=== PATIENT | female | born 1960 | race Caucasian/White ===

== ENCOUNTER → 2016-09-09 | Outpatient (CLI) | payer MEDICARE ==
--- NOTE | 2016-09-10 09:33 | MM ---
Reason for exam: screening (asymptomatic). Last mammogram was performed 5 years and 3 months ago. History: Patient is postmenopausal and is nulliparous. Taking estrogen for 8 years beginning at age 40. Physical Findings: A clinical breast exam by your physician is recommended on an annual basis and results should be correlated with mammographic findings. MG Screening Mammo w CAD Bilateral CC and MLO view(s) were taken. Prior study comparison: July 25, 2015, mammogram, performed at [facility]. July 24, 2014, mammogram, performed at [facility]. The breast tissue is heterogeneously dense. This may lower the sensitivity of mammography. Finding: There are typically benign round calcifications in the left breast. There is no discrete abnormality. ASSESSMENT: Benign, BI-RAD 2 RECOMMENDATION: Routine screening mammogram of both breasts in 1 year.
== END | disposition home or self-care (01) ==
LOC: RADMAMWWP 09:21
PROVIDERS: ATTEND Internal Medicine
DX: Z12.31 Encounter for screening mammogram for malignant neoplasm of breast (principal)

== ENCOUNTER → 2017-01-07 | Outpatient (CLI) | payer MEDICARE ==
--- NOTE | 2017-01-07 10:23 | US ---
EXAMINATION TYPE: US liver DATE OF EXAM: 01/07/2017 COMPARISONUS CLINICAL HISTORY: R94.5 ABN LIVER FUNCTION. EXAM MEASUREMENTS: Liver Length: 15.2 cm Gallbladder Wall: Surgically absent cm CBD: 0.32 cm Right Kidney: 10.2 X 5.4 X 2.7 cm Pancreas: Obscured by bowel gas Liver: wnl Gallbladder: Surgically absent. CBD: wnl Right Kidney: No hydronephrosis or masses seen IMPRESSION: No significant abnormality.
== END | disposition home or self-care (01) ==
LOC: RADUSWWP 08:19
PROVIDERS: ATTEND Internal Medicine
DX: R94.5 Abnormal results of liver function studies (principal)
CPT/HCPCS: 76705

== ENCOUNTER 2018-01-01 15:44 | Emergency (ER) | payer MEDICARE ==
[2018-01-01 15:55] VITALS: RESP 18
--- NOTE | 2018-01-01 16:14 | ED ---
General Adult HPI - General Chief complaint: Dizziness Stated complaint: Dizzy Time Seen by Provider: 01/01/18 16:12 Source: patient, RN notes reviewed, old records reviewed Mode of arrival: wheelchair Limitations: no limitations - History of Present Illness Initial comments: This is a 57-year-old female the ER with calm. Medical history. Muscular dystrophy. Patient states she's had severe dizziness throughout the day, worse with position changes she states she can't move her head so the symptoms of being severe. She has no history of heart disease no prior history of stroke or heart attack. Patient denies any trauma no headache. No blurry vision. No difficulty with hearing. No recent fevers. - Related Data Home Medications Medication Instructions Recorded Confirmed Acetaminophen Tab [Tylenol Tab] 1,000 mg PO Q6HR PRN 01/01/18 01/01/18 Acyclovir [Zovirax] 200 mg PO BID 01/01/18 01/01/18 Ergocalciferol (Vitamin D2) 50,000 unit PO TH 01/01/18 01/01/18 [Vitamin D2] Levothyroxine Sodium [Synthroid] 50 mcg PO DAILY 01/01/18 01/01/18 Meclizine [Antivert] 25 mg PO Q8H PRN 01/01/18 01/01/18 Pantoprazole Sodium [Protonix] 40 mg PO DAILY 01/01/18 01/01/18 Vision Formula 1 tab PO DAILY 01/01/18 01/01/18 Vitamin B Complex 1 cap PO DAILY 01/01/18 01/01/18 Allergies Allergy/AdvReac Type Severity Reaction Status Date / Time Sulfa (Sulfonamide Allergy Rash/Hives Verified 01/01/18 16:07 Antibiotics) Review of Systems ROS Statement: Those systems with pertinent positive or pertinent negative responses have been documented in the HPI. ROS Other: All systems not noted in ROS Statement are negative. Past Medical History Past Medical History: Hyperlipidemia, Thyroid Disorder Additional Past Medical History / Comment(s): muscular dystophy History of Any Multi-Drug Resistant Organisms: None Reported Past Surgical History: Hysterectomy, Orthopedic Surgery, Tonsillectomy Additional Past Surgical History / Comment(s): throidectomy Past Psychological History: No Psychological Hx Reported Smoking Status: Never smoker Past Alcohol Use History: None Reported Past Drug Use History: None Reported General Exam - General Exam Comments Initial Comments: Right cerumen impaction Limitations: no limitations General appearance: alert, in no apparent distress Head exam: Present: atraumatic, normocephalic, normal inspection Eye exam: Present: normal appearance, PERRL, EOMI. Absent: scleral icterus, conjunctival injection, periorbital swelling ENT exam: Present: normal exam, mucous membranes moist Neck exam: Present: normal inspection. Absent: tenderness, meningismus, lymphadenopathy Respiratory exam: Present: normal lung sounds bilaterally. Absent: respiratory distress, wheezes, rales, rhonchi, stridor Cardiovascular Exam: Present: regular rate, normal rhythm, normal heart sounds. Absent: systolic murmur, diastolic murmur, rubs, gallop, clicks GI/Abdominal exam: Present: soft, normal bowel sounds. Absent: distended, tenderness, guarding, rebound, rigid Extremities exam: Present: normal inspection, full ROM, normal capillary refill. Absent: tenderness, pedal edema, joint swelling, calf tenderness Back exam: Present: normal inspection Neurological exam: Present: alert, oriented X3, CN II-XII intact Psychiatric exam: Present: normal affect, normal mood Skin exam: Present: warm, dry, intact, normal color. Absent: rash Course Vital Signs 01/01/18 01/01/18 15:52 17:54 Temperature 98.2 F Pulse Rate 91 66 Respiratory 18 18 Rate Blood Pressure 141/93 127/61 O2 Sat by Pulse 94 L 95 Oximetry - Reevaluation(s) Reevaluation #1: 01/01/18 19:13 Patient did have left cerumen impaction evacuated Reevaluation #2: 01/01/18 19:13 Patient feels better and is able to ambulate, with no neurological deficit EKG Findings - EKG Comments: EKG Findings:: EKG shows sinus rhythm rate of 79, SC 232, QRS 160, QTc 511 Medical Decision Making - Medical Decision Making 87 female the ER for evaluation she has presents today for evaluation regards to dizziness. Patient did have positive right cerumen impaction, symptoms improved after cerumen is removed, patient currently able to ambulate CT is negative and patient can be discharged home - Lab Data Result diagrams: 01/01/18 16:25 01/01/18 16:25 Lab Results 06/30/18 06/30/18 06/30/18 Range/Units 16:25 16:25 16:25 WBC 6.7 (3.8-10.6) k/uL RBC 5.09 (3.80-5.40) m/uL Hgb 16.0 (11.4-16.0) gm/dL Hct 46.7 H (34.0-46.0) % MCV 91.8 (80.0-100.0) fL MCH 31.4 (25.0-35.0) pg MCHC 34.2 (31.0-37.0) g/dL RDW 14.2 (11.5-15.5) % Plt Count 223 (150-450) k/uL Neutrophils % 60 % Lymphocytes % 32 % Monocytes % 3 % Eosinophils % 3 % Basophils % 1 % Neutrophils # 4.0 (1.3-7.7) k/uL Lymphocytes # 2.2 (1.0-4.8) k/uL Monocytes # 0.2 (0-1.0) k/uL Eosinophils # 0.2 (0-0.7) k/uL Basophils # 0.0 (0-0.2) k/uL PT (9.0-12.0) sec INR (<1.2) APTT (22.0-30.0) sec Sodium 146 H (137-145) mmol/L Potassium 4.6 (3.5-5.1) mmol/L Chloride 109 H (98-107) mmol/L Carbon Dioxide 26 (22-30) mmol/L Anion Gap 11 mmol/L BUN 15 (7-17) mg/dL Creatinine 0.40 L (0.52-1.04) mg/dL Est GFR (CKD-EPI)AfAm >90 (>60 ml/min/1.73 sqM) Est GFR (CKD-EPI)NonAf >90 (>60 ml/min/1.73 sqM) Glucose 89 (74-99) mg/dL Calcium 10.6 H (8.4-10.2) mg/dL Phosphorus 3.1 (2.5-4.5) mg/dL Magnesium 2.4 H (1.6-2.3) mg/dL Total Bilirubin 0.6 (0.2-1.3) mg/dL AST 91 H (14-36) U/L ALT 104 H (9-52) U/L Alkaline Phosphatase 246 H (38-126) U/L Total Creatine Kinase 108 (30-135) U/L CK-MB (CK-2) 2.3 (0.0-2.4) ng/mL CK-MB (CK-2) Rel Index 2.1 Troponin I <0.012 (0.000-0.034) ng/mL Total Protein 7.4 (6.3-8.2) g/dL Albumin 4.5 (3.5-5.0) g/dL 01/01/18 Range/Units 16:25 WBC (3.8-10.6) k/uL RBC (3.80-5.40) m/uL Hgb (11.4-16.0) gm/dL Hct (34.0-46.0) % MCV (80.0-100.0) fL MCH (25.0-35.0) pg MCHC (31.0-37.0) g/dL RDW (11.5-15.5) % Plt Count (150-450) k/uL Neutrophils % % Lymphocytes % % Monocytes % % Eosinophils % % Basophils % % Neutrophils # (1.3-7.7) k/uL Lymphocytes # (1.0-4.8) k/uL Monocytes # (0-1.0) k/uL Eosinophils # (0-0.7) k/uL Basophils # (0-0.2) k/uL PT 9.5 (9.0-12.0) sec INR 1.0 (<1.2) APTT 22.5 (22.0-30.0) sec Sodium (137-145) mmol/L Potassium (3.5-5.1) mmol/L Chloride (98-107) mmol/L Carbon Dioxide (22-30) mmol/L Anion Gap mmol/L BUN (7-17) mg/dL Creatinine (0.52-1.04) mg/dL Est GFR (CKD-EPI)AfAm (>60 ml/min/1.73 sqM) Est GFR (CKD-EPI)NonAf (>60 ml/min/1.73 sqM) Glucose (74-99) mg/dL Calcium (8.4-10.2) mg/dL Phosphorus (2.5-4.5) mg/dL Magnesium (1.6-2.3) mg/dL Total Bilirubin (0.2-1.3) mg/dL AST (14-36) U/L ALT (9-52) U/L Alkaline Phosphatase (38-126) U/L Total Creatine Kinase (30-135) U/L CK-MB (CK-2) (0.0-2.4) ng/mL CK-MB (CK-2) Rel Index Troponin I (0.000-0.034) ng/mL Total Protein (6.3-8.2) g/dL Albumin (3.5-5.0) g/dL - Radiology Data Radiology results: report reviewed (CT brain negative), image reviewed Disposition Clinical Impression: Benign paroxysmal positional vertigo Disposition: HOME SELF-CARE Condition: Good Instructions: Dizziness (ED), Vertigo (ED) Is patient prescribed a controlled substance at d/c from ED?: No Referrals: Jon De La Torre MD [Primary Care Provider] - 1-2 days
[2018-01-01] MEDS ORDERED: SODIUM CHLORIDE 0.9% 1,000 ML IV STA (16:22)
[2018-01-01 16:53] LABS: Basophils % (A) 1 %; Eosinophils # (A) 0.2 k/uL (0-0.7); Eosinophils % (A) 3 %; HCT 46.7 % (34.0-46.0); Lymphocytes # (A) 2.2 k/uL (1.0-4.8); Lymphocytes % (A) 32 %; MCH 31.4 pg (25.0-35.0); MCHC 34.2 g/dL (31.0-37.0); MCV 91.8 fL (80.0-100.0); Mean Platelet Volume 6.8; Monocytes # (A) 0.2 k/uL (0-1.0); Monocytes % (A) 3 %; Neutrophils % (A) 60 %; Platelet Count 223 k/uL (150-450); RBC 5.09 m/uL (3.80-5.40); RDW 14.2 % (11.5-15.5); WBC 6.7 k/uL (3.8-10.6)
[2018-01-01 17:01] LABS: Partial Thromboplastin Time 22.5 sec (22.0-30.0); Prothrombin Time 9.5 sec (9.0-12.0)
[2018-01-01 17:03] LABS: ALT 104 U/L (9-52); AST 91 U/L (14-36); Albumin 4.5 g/dL (3.5-5.0); Alkaline Phosphatase 246 U/L (38-126); Anion Gap 11 mmol/L; Blood Urea Nitrogen 15 mg/dL (7-17); Calcium 10.6 mg/dL (8.4-10.2); Carbon Dioxide 26 mmol/L (22-30); Chloride 109 mmol/L (98-107); Glucose 89 mg/dL (74-99); Magnesium 2.4 mg/dL (1.6-2.3); Phosphorus 3.1 mg/dL (2.5-4.5); Sodium 146 mmol/L (137-145); Total Bilirubin 0.6 mg/dL (0.2-1.3); Total Protein 7.4 g/dL (6.3-8.2)
[2018-01-01 17:04] LABS: Potassium 4.6 mmol/L (3.5-5.1)
--- NOTE | 2018-01-01 17:08 | CT ---
EXAMINATION TYPE: CT brain wo con DATE OF EXAM: 01/01/2018 COMPARISON: None HISTORY: Dizziness and weakness x [address] DLP: 1105.7 mGycm Automated exposure control for dose reduction was used. Helical imaging through the brain FINDINGS: There is cortical atrophy. Periventricular white matter shows patchy low attenuation. There is no hem orrhage or hydrocephalus. Calvarium is intact. Paranasal sinuses and mastoid air cells as visualized are normal. IMPRESSION: NONSPECIFIC WHITE MATTER DEMYELINATION. ATROPHY MAY BE AGE-RELATED.
[2018-01-01 17:11] LABS: Creatine Kinase 108 U/L (30-135)
[2018-01-01 17:24] LABS: Creatine Kinase MB 2.3 ng/mL (0.0-2.4); Troponin I <0.012 ng/mL (0.000-0.034)
[2018-01-01] MEDS ORDERED: ONDANSETRON 4 MG/2 ML VIAL IVP STA (17:45)
[2018-01-01] MEDS ORDERED: DIAZEPAM 5 MG/ML 2 ML INJ IVP STA (17:45)
[2018-01-01 19:20] VITALS: TEMP 97.7
[2018-01-01 19:22] VITALS: BP 116/76; PULSE 61
--- NOTE | 2018-01-04 06:53 | CDI ---
Dear Trey Nichole DO: Please do addendum the method of right cerumen impaction removal. Thank you, Jagruti Mario, [employer]. If you have any questions, please contact [employer] Operator at [phone]. [facility]
== END 2018-01-01 19:21 | disposition home or self-care (01) ==
LOC: EC 15:44
DX: H81.10 Benign paroxysmal vertigo, unspecified ear (principal); H61.21 Impacted cerumen, right ear; E07.9 Disorder of thyroid, unspecified; Z79.899 Other long term (current) drug therapy; Z88.2 Allergy status to sulfonamides
CPT/HCPCS: 99284 ×2; 69209 ×2; 96374 ×2; 96375 ×2; 96361 ×2; 36415; 93005; 80053; 82550; 82553; 83735; 84100; 84484; 85025; 85610; 85730; 70450; J3360; J2405

== ENCOUNTER → 2018-01-26 | Outpatient (CLI) | payer MEDICARE ==
--- NOTE | 2018-01-27 11:32 | MM ---
Reason for exam: screening (asymptomatic). Last mammogram was performed 1 year and 5 months ago. History: Patient is postmenopausal, history of other cancer, and is nulliparous. Family history of breast cancer in 4 maternal aunts and breast cancer in maternal grandmother. Took estrogen for 8 years beginning at age 40. Physical Findings: A clinical breast exam by your physician is recommended on an annual basis and results should be correlated with mammographic findings. MG Screening Mammo w CAD Bilateral CC and MLO view(s) were taken. Prior study comparison: September 09, 2016, bilateral MG screening mammo w CAD. July 25, 2015, mammogram, performed at [facility]. The breast tissue is heterogeneously dense. This may lower the sensitivity of mammography. There is a right upper outer quadrant mass at posterior depth increased in size for which ultrasound will be performed. ASSESSMENT: Incomplete: need additional imaging evaluation, BI-RAD 0 RECOMMENDATION: Ultrasound of the right breast. [facility] will attempt to contact patient to return for ultrasound.
== END | disposition home or self-care (01) ==
LOC: RADMAMWWP 11:21
PROVIDERS: ATTEND Internal Medicine
DX: Z12.31 Encounter for screening mammogram for malignant neoplasm of breast (principal)
CPT/HCPCS: 77067

== ENCOUNTER → 2018-02-22 | Outpatient (CLI) | payer MEDICARE ==
--- NOTE | 2018-02-22 15:28 | MM ---
Reason for exam: additional evaluation requested from abnormal screening. Last mammogram was performed 1 month ago. History: Patient is postmenopausal, history of other cancer, and is nulliparous. Family history of breast cancer in 4 maternal aunts and breast cancer in maternal grandmother. Took estrogen for 8 years beginning at age 40. Physical Findings: Nurse did not find any significant physical abnormalities on exam. MG Work Up Mamm w CAD RT CC and ML view(s) were taken of the right breast. Prior study comparison: January 26, 2018, bilateral MG screening mammo w CAD. September 09, 2016, bilateral MG screening mammo w CAD. No significant new findings when compared with previous films. These results were verbally communicated with the patient and result sheet given to the patient on 02/22/18. ASSESSMENT: Probably benign, BI-RAD 3 RECOMMENDATION: Follow-up diagnostic mammogram of the right breast in 6 months.
--- NOTE | 2018-02-22 15:30 | USB ---
Reason for exam: additional evaluation requested from abnormal screening. History: Patient is postmenopausal, history of other cancer, and is nulliparous. Family history of breast cancer in 4 maternal aunts and breast cancer in maternal grandmother. Took estrogen for 8 years beginning at age 40. Physical Findings: Nurse did not find any significant physical abnormalities on exam. US Breast Workup Limited RT Right limited breast ultrasound including focal area of concern, retroareolar and axilla demonstrates a 0.3 x 0.3 x 0.3cm oval, cystic lesion at 10 o'clock. These results were verbally communicated with the patient and result sheet given to the patient on 02/22/18. ASSESSMENT: Benign, BI-RAD 2 RECOMMENDATION: Ultrasound of the right breast in 6 months.
== END ==
LOC: RADUSWWP 09:34
PROVIDERS: ATTEND Internal Medicine
DX: R92.8 Other abnormal and inconclusive findings on diagnostic imaging of breast (principal)
CPT/HCPCS: 77065

== ENCOUNTER → 2018-08-25 | Outpatient (CLI) | payer MEDICARE ==
--- NOTE | 2018-08-25 13:56 | MM ---
Reason for exam: follow-up at short interval from prior study. Last mammogram was performed 6 months ago. History: Patient is postmenopausal, history of other cancer, and is nulliparous. Family history of breast cancer in 4 maternal aunts and breast cancer in maternal grandmother. Took estrogen for 8 years beginning at age 40. Physical Findings: Nurse did not find any significant physical abnormalities on exam. MG 3D Diag Mammo W/Cad RT CC and MLO view(s) were taken of the right breast. Prior study comparison: February 22, 2018, right breast MG work up mamm w CAD RT. January 26, 2018, bilateral MG screening mammo w CAD. There are scattered fibroglandular densities. Posterior upper outer quadrant nodule is unchanged for 6 months. These results were verbally communicated with the patient and result sheet given to the patient on 08/25/18. ASSESSMENT: Incomplete: need additional imaging evaluation, BI-RAD 0 RECOMMENDATION: Ultrasound of the right breast.
--- NOTE | 2018-08-25 14:07 | USB ---
Reason for exam: additional evaluation requested from abnormal screening. History: Patient is postmenopausal, history of other cancer, and is nulliparous. Family history of breast cancer in 4 maternal aunts and breast cancer in maternal grandmother. Took estrogen for 8 years beginning at age 40. US Breast RT Right complete breast ultrasound includes all four quadrants, the retroareolar region and axilla. Finding demonstrates a 0.3 x 0.2 x 0.1cm lesion too small to characterize at 10 o'clock and a 0.7 x 0.7 x 0.5cm mixed lesion at the axilla tail, likely corresponds to the mammographic finding. Biopsy recommended with mammographic correlation post clip placement. These results were verbally communicated with the patient and result sheet given to the patient on 08/25/18. ASSESSMENT: Suspicious, BI-RAD 4 RECOMMENDATION: Surgical consultation and ultrasound core biopsy of the right breast. Called Dr. De La Torre with mammographic findings and has scheduled an appointment for the patient for 09/22/18 at 11:[address] Trujillo. Biopsy scheduled for 09/08/18 at 12:20. PRELIMINARY REPORT CALLED AND FAXED TO DR. TRUJILLO ON 08/25/18.
== END | disposition home or self-care (01) ==
LOC: RADMAMWWP 09:36
PROVIDERS: ATTEND Internal Medicine
DX: R92.8 Other abnormal and inconclusive findings on diagnostic imaging of breast (principal)
CPT/HCPCS: 77065; 76641; G0279; 77061

== ENCOUNTER → 2018-09-08 | Day surgery (SDC) | payer MEDICARE ==
[2018-09-08 11:43] VITALS: RESP 12
--- NOTE | 2018-09-08 13:09 | USB ---
EXAMINATION TYPE: US biopsy breast VAD RT, MG diagnostic mammo RT wo CAD DATE OF EXAM: 09/08/2018 CLINICAL HISTORY: R92.8 ABN MAMMO. TECHNIQUE: Ultrasound guided core biopsy of a right breast mass at the targeted clip position in the axillary tail. COMPARISON: 08/25/2018 FINDINGS: The procedure of ultrasound guided core biopsy was explained to the patient. Benefits, alt ernatives, and risks were discussed. An informed consent was then obtained. Preprocedural timeout w as performed. The patient was placed in supine positioning for imaging and for the procedure. The overlying skin w as prepped and draped in usual sterile fashion. Lidocaine buffered with bicarbonate was used as anes thetic into the skin and subcutaneous tissue up to area of concern in the right breast. Under ultrasound guidance, a 14-gauge nonvacuum assisted biopsy device was utilized to obtain 4 fragm ented nondiagnostic fatty appearing samples. Following this a 12-gauge vacuum assisted biopsy gun dev ice was used to obtain 2 adequate core samples as the first 4 samples were fragmented. Subsequently, a coil-shaped biopsy marker was left adjacent to the mass. This appears to correspond to the mass on mammogram as this directly correspond on cc and accounting for differences in technique on the LM ve rsus MLO this appears to correspond. The patient tolerated the procedure well without any immediate complication. The patient was kept in the radiology department for short stay after the procedure and then discharged home in stable condi tion. IMPRESSION: Successful, uncomplicated ultrasound guided core biopsy of a right axillary tail mass at the 10:00 position favored to represent a lymph node, full pathology results to follow.
[2018-09-08 13:19] VITALS: BP 124/80; PULSE 75; TEMP 98.6
== END | disposition home or self-care (01) ==
LOC: RADUSWWP 11:14
PROVIDERS: ATTEND Surgery
DX: N60.91 Unspecified benign mammary dysplasia of right breast (principal); R92.8 Other abnormal and inconclusive findings on diagnostic imaging of breast
CPT/HCPCS: 19083; 88305; 88342; 88341; 77065; A4648; J2001

== ENCOUNTER 2018-10-21 08:16 | Day surgery (SDC) | payer MEDICARE ==
[2018-10-18 16:01] VITALS: BMI 27.4
[~2018-10-21 08:16] MED LIST: ALPRAZolam 0.5 MG TAB PO PRN; DEXAMETHASONE SOD PHOSPHATE 10 MG/ML 1 ML VIAL IV ONE; HEPARIN SODIUM,PORCINE 5,000 UNIT/ML 1 ML VIAL SQ ONE; HYDROmorphone 0.5 MG/0.5 ML SYRINGE IVP PRN; LACTATED RINGERS 1,000 ML IV SCH; MORPHINE SULFATE 2 MG/ML SYRINGE IV PRN; ONDANSETRON 4 MG/2 ML VIAL IVP ONE; ONDANSETRON 4 MG/2 ML VIAL IVP PRN; Pre Op ABX Message 1 EACH MISC MISCELLANE ONE; ceFAZolin IN SWFI 2 GM/20 ML SYRINGE IVP ONE
--- NOTE | 2018-10-21 09:05 | P.HPADDEND ---
H&P Addendum H&P Addendum Date: 10/21/18 Patient's recent breast workup apparently revealed an additional small 1-2 mm lesion was advised to have a ultrasound core biopsy performed. That we will be obtained at the time of her needle localization today.
[2018-10-21 10:07] VITALS: RESP 16
[2018-10-21] MEDS ORDERED: LIDOCAINE 1% INJ 10MG/ML (20 ML MDV) SQ ONE (10:14)
[2018-10-21] MEDS ORDERED: SODIUM BICARB 4% 5 ML VIAL (0.48 MEQ/ML) MISCELLANE ONE (10:14)
[2018-10-21 10:32] VITALS: TEMP 97.6
[2018-10-21] MEDS ORDERED: MIDAZOLAM 2 MG/2 ML VIAL ONE (12:10)
[2018-10-21] MEDS ORDERED: KETAMINE 10 MG/ML 20 ML VIAL ONE (12:10)
[2018-10-21] MEDS ORDERED: fentaNYL (PF) 50 MCG/ML 2 ML AMP ONE (12:10)
[2018-10-21] MEDS ORDERED: BUPIVACAINE-EPI 0.5%-1:200,000 10 ML VIAL SQ ONE ×2 (12:39)
[2018-10-21] MEDS ORDERED: LACTATED RINGERS 1,000 ML IV ONE (12:40)
[2018-10-21] MEDS ORDERED: NALOXONE 0.4 MG/ML 1 ML VIAL IV PRN (13:21)
[2018-10-21] MEDS ORDERED: HYDROcodone/APAP 5-325MG 1 EACH TAB PO PRN (13:21)
--- NOTE | 2018-10-21 13:25 | P.OP ---
Date of Procedure: 10/21/18 Procedure(s) Performed: PREOPERATIVE DIAGNOSIS: Abnormal right mammogram POSTOPERATIVE DIAGNOSIS: Same PROCEDURE: 8 Breast wire localization biopsy SURGEON: Ronnie EBL: Minimal ANESTHESIA: Sedation plus local COMPLICATIONS: None OPERATIVE PROCEDURE: Patient was placed on the operating room table in the supin e position. The patient's breast was prepped and draped in usual sterile fashion. A curvilinear incision was made adjacent to the wire entrance site. I followed the wire down into the breast tissue. The breast tissue around the tip of the wire was fully excised using electrocautery. The specimen was sent for specimen radiogram. The clip was present within the specimen. The subcutaneous tissues were inspected. No bleeding was seen. The subcutaneous tissues were closed using 3-0 Vicryl sutures. The skin was closed using a running 4-0 Monocryl stitch. Skin glue was then applied. DISPOSITION: Stable to recovery room
[2018-10-21] MEDS ORDERED: HYDROcodone/APAP 5-325MG 1 EACH TAB PO ONE (14:10)
--- NOTE | 2018-10-21 14:32 | USB ---
EXAMINATION TYPE: US breast localization RT, MG surgical specimen RT DATE OF EXAM: 10/21/2018 COMPARISON: 09/08/2018 CLINICAL HISTORY: R92.8, ABN MAMM. PROCEDURE: Preprocedural demonstrating failed to demonstrate a solid mass at the 10:00 position as seen on the prior imaging. Breast lobes were seen at this location and intervening areas of dense tissue. Finding was discussed with the patient and six-month follow-up exam will be performed. Informed consent was obtained prior to the procedure. Preprocedural timeout was performed. Ultrasound-guided needle localization was performed of the right breast for the axillary tail/10:00 lesion at posterior depth. 10 cc of lidocaine was utilized to anesthetize the subcutaneous tissue and skin surface. A 5 cm Kopans needle was advanced through the mass to the biopsy marker location. The wire was then placed through the coaxial needle and needle was removed. This was all performed under ultrasound guidance. Image 22 demonstrates the wire through the mass with the distal end of the wire abutting the clip. Image 23 demonstrates skin to needle tip distance of 1.6 cm. The patient remained in stable condition throughout the examination and was transferred to the OR for surgery. Surgical specimen demonstrates the biopsy marker, wire tip and wire. IMPRESSION: Successful ultrasound-guided needle localization of a right breast mass with the distal on the wire terminating at the clip. This was performed for surgical excision of the high risk lesion. Note the additional 3 x 2 x 1 mm mass was not reproducible on today's examination on real-time imaging and six-month follow-up ultrasound will be performed. 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 Stromal reparative changes are noted. Inked surgical margins of excision are negative for neoplasia. Recommendation Follow up ultrasound of the right breast in 6 months. CABRERAD
[2018-10-21 14:54] VITALS: BP 128/74; PULSE 82
== END 2018-10-21 15:15 | disposition home or self-care (01) ==
LOC: OR 08:16
PROVIDERS: ATTEND Surgery
DX: D24.1 Benign neoplasm of right breast (principal); E78.5 Hyperlipidemia, unspecified; E89.0 Postprocedural hypothyroidism; G71.11 Myotonic muscular dystrophy; Z79.890 Hormone replacement therapy; Z79.899 Other long term (current) drug therapy; Z88.2 Allergy status to sulfonamides
CPT/HCPCS: 88307; 76098; 19285; 19125; J2250; J1644; J1100; J2405; J2001; J3010

== ENCOUNTER → 2020-03-05 | Outpatient (CLI) | payer MEDICARE ==
--- NOTE | 2020-03-06 10:18 | MM ---
Reason for exam: screening (asymptomatic). Last mammogram was performed 1 year and 6 months ago. History: Patient is postmenopausal, has history of high-risk lesion on a previous biopsy at age 58, history of other cancer, and is nulliparous. Family history of breast cancer in 4 maternal aunts and breast cancer in maternal grandmother. Benign US breast localization RT of the right breast, October 21, 2018. High risk US biopsy breast VAD RT of the right breast, September 08, 2018. Took estrogen for 8 years beginning at age 40. Physical Findings: A clinical breast exam by your physician is recommended on an annual basis and results should be correlated with mammographic findings. MG 3D Screening Mammo W/Cad Bilateral CC and MLO view(s) were taken. Prior study comparison: September 08, 2018, right breast MG diagnostic mammo RT wo CAD. August 25, 2018, right breast MG 3d diag mammo w/cad RT. The breast tissue is heterogeneously dense. This may lower the sensitivity of mammography. There is no discrete abnormality. No significant changes when compared with prior studies. ASSESSMENT: Negative, BI-RAD 1 RECOMMENDATION: Routine screening mammogram of both breasts in 1 year.
== END | disposition home or self-care (01) ==
LOC: RADMAMWWP 10:54
PROVIDERS: ATTEND Internal Medicine
DX: Z12.31 Encounter for screening mammogram for malignant neoplasm of breast (principal)
CPT/HCPCS: 77063; 77067

== ENCOUNTER 2020-04-19 12:21 | Emergency (ER) | payer MEDICARE ==
[2020-04-19 13:29] LABS: Basophils # (A) 0.1 k/uL (0-0.2); Basophils % (A) 1 %; Eosinophils # (A) 0.2 k/uL (0-0.7); Eosinophils % (A) 3 %; HCT 50.8 % (34.0-46.0); HGB 16.5 gm/dL (11.4-16.0); Lymphocytes # (A) 2.7 k/uL (1.0-4.8); Lymphocytes % (A) 37 %; MCH 30.9 pg (25.0-35.0); MCHC 32.6 g/dL (31.0-37.0); Mean Platelet Volume 7.2; Monocytes # (A) 0.2 k/uL (0-1.0); Monocytes % (A) 3 %; Neutrophils # (A) 3.9 k/uL (1.3-7.7); Neutrophils % (A) 54 %; Platelet Count 239 k/uL (150-450); RBC 5.35 m/uL (3.80-5.40); RDW 13.4 % (11.5-15.5); WBC 7.2 k/uL (3.8-10.6)
--- NOTE | 2020-04-19 13:37 | ED ---
General Adult HPI - General Chief complaint: ENT Stated complaint: lump on neck Time Seen by Provider: 04/19/20 12:36 Source: patient, RN notes reviewed, old records reviewed Mode of arrival: wheelchair Limitations: no limitations - History of Present Illness Initial comments: 60 yo female presenting for evaluation of right-sided neck pain, tenderness, and a lump in her throat. Patient has remote history of thyroidectomy. She states she noticed this over the past 24 hours. She states it feels pulsatile. She does report pain. She had a URI with minimal cough and congestion several days ago. She denies any acute illness at this time. No cough. No chest pain. No fevers. No sore throat. Difficulty breathing or swallowing. - Related Data Home Medications Medication Instructions Recorded Confirmed Acyclovir [Zovirax] 400 mg PO BID 01/01/18 10/18/18 Ergocalciferol (Vitamin D2) 50,000 unit PO TH 01/01/18 10/18/18 [Vitamin D2] Levothyroxine Sodium [Synthroid] 50 mcg PO DAILY 01/01/18 10/18/18 Pantoprazole Sodium [Protonix] 40 mg PO DAILY PRN 01/01/18 10/18/18 Vision Formula 1 tab PO DAILY 01/01/18 10/18/18 Vitamin B Complex 1 cap PO DAILY 01/01/18 10/18/18 Donepezil [Aricept] 5 mg PO DAILY 08/29/18 10/21/18 Previous Rx's Medication Instructions Recorded Hydrocodone/Acetaminophen [[place] 1 tab PO Q6HR PRN 3 Days #5 tab 10/21/18 5-325] Allergies Allergy/AdvReac Type Severity Reaction Status Date / Time Sulfa (Sulfonamide Allergy Swelling, Verified 04/19/20 12:35 Antibiotics) REDNESS OF FACE Review of Systems ROS Statement: Those systems with pertinent positive or pertinent negative responses have been documented in the HPI. ROS Other: All systems not noted in ROS Statement are negative. Past Medical History Past Medical History: Cancer, Eye Disorder, Hyperlipidemia, Memory Impairment, Musculoskeletal Disorder, Osteoarthritis (OA), Thyroid Disorder Additional Past Medical History / Comment(s): muscular dystophy, BACK PAIN , SKIN CANCER, MACULAR DEGENERATION History of Any Multi-Drug Resistant Organisms: None Reported Past Surgical History: Cholecystectomy, Hysterectomy, Orthopedic Surgery, Tonsillectomy Additional Past Surgical History / Comment(s): throidectomy, ARTHROSCOPIC RIGHT KNEE Past Anesthesia/Blood Transfusion Reactions: Previous Problems w/ Anesthesia Additional Past Anesthesia/Blood Transfusion Reaction / Comment(s): pt states hard to wake up related to MUSCULAR DYSTROPHY - LONGER TO WAKE UP Past Psychological History: No Psychological Hx Reported Smoking Status: Never smoker Past Alcohol Use History: None Reported Past Drug Use History: None Reported - Past Family History Father Additional Family Medical History / Comment(s): MUSCULAR DYSTROPHY Mother Family Medical History: No Reported History General Exam Limitations: no limitations General appearance: alert, in no apparent distress Head exam: Present: atraumatic, normocephalic Eye exam: Present: normal appearance, PERRL ENT exam: Present: normal exam, normal oropharynx, other (No tongue swelling or uvular swelling) Neck exam: Present: lymphadenopathy (Tender 2 cm x 2 cm mass in the right soft tissue neck anterior to the sternocleidomastoid), other Respiratory exam: Present: normal lung sounds bilaterally. Absent: respiratory distress, wheezes, rhonchi, stridor Cardiovascular Exam: Present: regular rate, normal rhythm GI/Abdominal exam: Present: soft. Absent: distended, tenderness, guarding Extremities exam: Present: normal inspection, normal capillary refill. Absent: pedal edema Back exam: Present: normal inspection, full ROM Neurological exam: Present: alert, oriented X3 Psychiatric exam: Present: normal affect, normal mood Skin exam: Present: warm, dry, intact. Absent: cyanosis, diaphoretic Course Vital Signs 04/19/20 12:33 Temperature 98.0 F Pulse Rate 82 Respiratory 20 Rate Blood Pressure 141/92 O2 Sat by Pulse 98 Oximetry Medical Decision Making - Medical Decision Making 60-year-old female with right-sided neck pain, she does have a palpable lump on the right. There is no drainable abscess, no external skin changes, no pulsatile mass. She has no stridor or dyspnea. CT soft tissue is performed which shows a left thyroidectomy with no other acute findings. There is some nodularity to the right thyroid which will require ultrasound on an outpatient basis. She is instructed on this and will follow with her primary care physician. - Lab Data Result diagrams: 04/19/20 13:04 04/19/20 12:55 Lab Results 10/16/20 10/16/20 Range/Units 12:55 13:04 WBC 7.2 (3.8-10.6) k/uL RBC 5.35 (3.80-5.40) m/uL Hgb 16.5 H (11.4-16.0) gm/dL Hct 50.8 H (34.0-46.0) % MCV 95.0 (80.0-100.0) fL MCH 30.9 (25.0-35.0) pg MCHC 32.6 (31.0-37.0) g/dL RDW 13.4 (11.5-15.5) % Plt Count 239 (150-450) k/uL Neutrophils % 54 % Lymphocytes % 37 % Monocytes % 3 % Eosinophils % 3 % Basophils % 1 % Neutrophils # 3.9 (1.3-7.7) k/uL Lymphocytes # 2.7 (1.0-4.8) k/uL Monocytes # 0.2 (0-1.0) k/uL Eosinophils # 0.2 (0-0.7) k/uL Basophils # 0.1 (0-0.2) k/uL Sodium 141 (137-145) mmol/L Potassium 4.3 (3.5-5.1) mmol/L Chloride 105 (98-107) mmol/L Carbon Dioxide 30 (22-30) mmol/L Anion Gap 6 mmol/L BUN 14 (7-17) mg/dL Creatinine 0.45 L (0.52-1.04) mg/dL Est GFR (CKD-EPI)AfAm >90 (>60 ml/min/1.73 sqM) Est GFR (CKD-EPI)NonAf >90 (>60 ml/min/1.73 sqM) Glucose 94 (74-99) mg/dL Calcium 10.4 H (8.4-10.2) mg/dL Disposition Clinical Impression: Thyroid nodule Disposition: HOME SELF-CARE Instructions (If sedation given, give patient instructions): Thyroid Nodules (ED) Is patient prescribed a controlled substance at d/c from ED?: No Referrals: Jon De La Torre MD [Primary Care Provider] - 1-2 days Time of Disposition: 14:09
[2020-04-19 13:39] LABS: African American GFR (CKD) >90 (>60 ml/min/1.73 sqM); Anion Gap 6 mmol/L; Blood Urea Nitrogen 14 mg/dL (7-17); Calcium 10.4 mg/dL (8.4-10.2); Carbon Dioxide 30 mmol/L (22-30); Chloride 105 mmol/L (98-107); Glucose 94 mg/dL (74-99); Non-African American GFR(CKD) >90 (>60 ml/min/1.73 sqM); Potassium 4.3 mmol/L (3.5-5.1); Sodium 141 mmol/L (137-145)
--- NOTE | 2020-04-19 14:05 | CT ---
EXAMINATION TYPE: CT soft tissue neck w con DATE OF EXAM: 04/19/2020 1:38 PM COMPARISON: None HISTORY: Pain and swelling on the right side CT DLP: 276.6 mGycm Automated exposure control for dose reduction was used. CONTRAST: CT scan of the neck is performed following with IV Contrast, patient injected with 100 ml mL of Isovu e 300. Axial images are obtained, coronal and sagittal reformatted images are reviewed. FINDINGS: Airway: No gross abnormality seen. Parotid/submandibular glands: No gross abnormality seen. Carotid/Vascular Structures: Patent. Osseous Structures: No acute osseous abnormality. Degenerative changes of the spine. Prevertebral sof t tissue is unremarkable. Other: No cervical lymphadenopathy. No evidence of mass effect. No focal fluid collections or abscess . There is apparent left thyroidectomy. There are nodules within the right thyroid lobe. Lung apices are clear. IMPRESSION: 1. No focal abnormality to explain patient's pain and swelling. 2. Left thyroidectomy. Nodular changes of the right thyroid lobe. Correlation with thyroid ultrasound may be of benefit if outside imaging not available.
[2020-04-19 14:33] VITALS: BP 133/80; PULSE 88; RESP 18; TEMP 97.8
== END 2020-04-19 14:33 | disposition home or self-care (01) ==
LOC: EC 12:21
DX: E04.1 Nontoxic single thyroid nodule (principal); E89.0 Postprocedural hypothyroidism; Z85.828 Personal history of other malignant neoplasm of skin; Z79.899 Other long term (current) drug therapy; Z79.890 Hormone replacement therapy; Z88.2 Allergy status to sulfonamides
CPT/HCPCS: 36415; 80048; 85025; 70491; 99284; Q9967

== ENCOUNTER → 2020-05-17 | Outpatient (CLI) | payer MEDICARE ==
--- NOTE | 2020-05-17 12:48 | US ---
EXAMINATION TYPE: US thyroid st tissue head/neck DATE OF EXAM: 05/17/2020 COMPARISON: NONE CLINICAL HISTORY: 60-year-old female N95.1 post menopausal states E04.1 Thyroid nodule. TECHNIQUE: Multiple sonographic images of the thyroid gland are obtained. FINDINGS: GLAND SIZE: Right Lobe: 5.1 x 1.6 x 2.1 cm Overall Parenchyma: grossly heterogenous Left Lobe: Surgically absent NODULES RIGHT: # of nodules measured on right: 1. 1.0 X 0.8 x 1.0 cm heterogeneous hypoechoic solid nodule at the lower pole with well-defined mar gins. This nodule is taller than wide and shows no intranodular vascularity. No prior at this facility. LEFT: # of nodules measured on left: 0 ISTHMUS: # of nodules measured in the isthmus: 0 Bilateral neck scanned, no evidence of lymphadenopathy. IMPRESSION: 1. Status post left thyroidectomy. 2. A solitary 1 cm solid nodule at the right lower pole. Follow-up is recommended.
--- NOTE | 2020-05-17 18:38 | BD ---
EXAMINATION TYPE: Axial Bone Density DATE OF EXAM: 05/17/2020 COMPARISON: 01.21.2015 CLINICAL HISTORY: 60 YR OLD FEMALE.....ICD-10 CODE: N95.1 POST MENPAUSE, E04.1 THYROID NODULE Height: 61.4 Weight: 155 FRAX RISK QUESTIONS: History of Fracture in Adulthood: YES Secondary Osteoporosis: YES 3. Menopause before 45: YES 5. Chronic liver disease: HIGH ENZYMES RISK FACTORS HISTORY OF: HX OF BILAT KNEE FRACTURES AND LT ANKLE AN ADULT Family History of Osteoporosis: YES MOTHER WITH BILAT HIP REPLACEMENTS Postmenopausal woman: YES AT AGE 37, TOTAL HYST Take estrogen and/or progesterone medications: YES, FOR ABOUT 10 YRS Lost more than 2 inches in height since high school: YES Frequent falls: UNSTEADY, USING CANE AND W/C....PT HAS MD Poor Health: PT HAS MD Hyperparathyroidism: NO Adrenal Insufficiency: NO MEDICATIONS: Thyroid Medications: YES SYNTHROID, FOR ABOUT 20 YRS Additional Medications: VIT D, Additional History: PT HAS MD EXAM MEASUREMENTS: Bone mineral densitometry was performed using the Twijector System. Bone mineral density as measured about the Lumbar spine is: ----- L1-L4(G/cm2): 1.387 T Score Values are as follows: ----- L1: 0.7 ----- L2: 1.6 ----- L3: 2.1 ----- L4: 2.2 ----- L1-L4: 1.7 Bone mineral density has: Increased 2.4% since study of: 01.21.2015 Bone mineral density about the R hip (g/cm2): 1.193 Bone mineral density about the L hip (g/cm2): 1.239 T Score values are as follows: -----R Neck: 0.3 -----L Neck: 0.9 -----R Total: 1.5 -----L Total: 1.8 Bone mineral density has: Increased 4.2% since study of: 01.21.2015 FRAX%s: THERE IS A 9.5% CHANCE FOR A MAJOR OSTEOPOROTIC FX AND A 0.1% FOR HIP .....PROBABILITY F OR FX IN 10 YRS TIME IMPRESSION: Normal (Values between +1 and -1 indicate normal bone mass). Consider repeating this study in 5 year s or sooner if there is some new clinical indication. NOTE: T-SCORE=SD OF THE YOUNG ADULT MEAN.
== END | disposition home or self-care (01) ==
LOC: RADBDWWP 09:56
PROVIDERS: ATTEND Internal Medicine
DX: N95.1 Menopausal and female climacteric states (principal); M85.88 Other specified disorders of bone density and structure, other site; E04.1 Nontoxic single thyroid nodule; Z88.2 Allergy status to sulfonamides; Z90.89 Acquired absence of other organs
CPT/HCPCS: 76536; 77080

== ENCOUNTER → 2020-08-26 | Outpatient (CLI) | payer MEDICARE ==
--- NOTE | 2020-08-26 12:29 | NM ---
EXAMINATION TYPE: NM thyroid image only DATE OF EXAM: 08/26/2020 COMPARISON: NONE HISTORY: Thyroid nodule TECHNIQUE: After the intravenous administration of 9.4 mCi Tc 99m Sodium Pertechnetate. FINDINGS: There is diminished radiotracer accumulation within the left thyroid bed compared to the right. Image s reported is status post left lobectomy, there is some faint diffuse uptake throughout the left thyr oid bed. Consider residual tissue no suspicious uptake or photopenic defect at the inferior pole righ t lobe thyroid is identified. Right thyroid uptake appears appropriate in relation to the salivary gl ands. IMPRESSION: 1. Faint diffuse uptake appears to be present on oblique images through the left thyroid bed. 2. No suspicious uptake photopenic defect right lobe thyroid
== END | disposition home or self-care (01) ==
LOC: RADNMMAIN 10:49
PROVIDERS: ATTEND Otolaryngology
DX: R93.89 Abnormal findings on diagnostic imaging of other specified body structures (principal)
CPT/HCPCS: 78013; A9512

== ENCOUNTER 2020-09-06 12:10 | Day surgery (SDC) | payer MEDICARE ==
[2020-09-06 12:47] VITALS: TEMP 98.1
[2020-09-06 14:16] VITALS: BP 126/71; PULSE 72; RESP 18
--- NOTE | 2020-09-06 16:06 | US ---
EXAMINATION TYPE: US FNA thyroid first lesion DATE OF EXAM: 09/06/2020 COMPARISON: NONE HISTORY: Thyroid nodule. Maximal barrier technique was utilized. After informed consent, skin overlying the lower pole right thyroid nodule was localized with ultrasound and the overlying skin prepped and draped. Ultrasound wa s utilized using sterile technique. Lidocaine was used for local anesthesia. Five passes with a 25-g auge needle were made into the nodule and aspirated specimen was submitted to cytology. Following th e procedure hemostasis achieved. No immediate complication. The patient discharged in stable condit ion. IMPRESSION: STATUS POST ULTRASOUND GUIDED FINE NEEDLE ASPIRATION OF THYROID NODULE, PATHOLOGY IS PEND ING. THIS PROCEDURE WAS PERFORMED BY THE UNDERSIGNED.
== END 2020-09-06 14:05 | disposition home or self-care (01) ==
LOC: RADPROMAIN 12:10
PROVIDERS: ATTEND Otolaryngology
DX: E04.1 Nontoxic single thyroid nodule (principal)
CPT/HCPCS: 10005; 88173; 88305

== ENCOUNTER 2020-09-20 09:08 | Day surgery (SDC) | payer MEDICARE ==
[2020-09-18 11:36] VITALS: BMI 26.5
[~2020-09-20 09:08] MED LIST changes: -ALPRAZolam 0.5 MG TAB PO PRN; -DEXAMETHASONE SOD PHOSPHATE 10 MG/ML 1 ML VIAL IV ONE; -HEPARIN SODIUM,PORCINE 5,000 UNIT/ML 1 ML VIAL SQ ONE; -HYDROmorphone 0.5 MG/0.5 ML SYRINGE IVP PRN; -MORPHINE SULFATE 2 MG/ML SYRINGE IV PRN; -ONDANSETRON 4 MG/2 ML VIAL IVP ONE; -ONDANSETRON 4 MG/2 ML VIAL IVP PRN; -Pre Op ABX Message 1 EACH MISC MISCELLANE ONE; -ceFAZolin IN SWFI 2 GM/20 ML SYRINGE IVP ONE
[2020-09-20 10:15] VITALS: TEMP 97.1
[2020-09-20] MEDS ORDERED: PROPOFOL 10 MG/ML 20 ML VIAL IV ONE (10:48)
[2020-09-20] MEDS ORDERED: LIDOCAINE 1% INJ 10MG/ML (20 ML MDV) ONE (10:48)
--- NOTE | 2020-09-20 11:05 | P.PCN ---
Date of Procedure: 09/20/20 Procedure(s) Performed: BRIEF HISTORY: Patient is a 60-year-old pleasant female scheduled for an elective colonoscopy as a part of evaluation of blood in the stool and prior history of colon polyps PROCEDURE PERFORMED: Colonoscopy with snare polypectomy. PREOPERATIVE DIAGNOSIS: Blood in the stool and history of colon polyps. IV sedation per Anesthesia. PROCEDURE: After informed consent was obtained, the patient, was brought into the endoscopy unit. IV sedation was administered by Anesthesia under continuous monitoring. Digital rectal examination was normal. Initially the Olympus CF-160 flexible video colonoscope was then inserted in the rectum, gradually advanced into the cecum without any difficulty. Careful examination was performed as the scope was gradually being withdrawn. Ileocecal valve and the appendiceal orifice were visualized and appeared normal. Prep was excellent. Mucosa of the cecum, ascending colon, transverse colon, appeared normal. The descending colon there was a 1 cm flat polyp removed by snare polypectomy. In the sigmoid: There was a 3 mm polyp removed by snare polypectomy The rest of the descending colon, sigmoid colon, and rectum appeared normal. Retroflexion was performed in the rectum and no lesions were seen. The patient tolerated the procedure well. IMPRESSION: 1 cm flat descending colon polyp status post polypectomy 3 mm sigmoid colon polyp status post polypectomy RECOMMENDATIONS: Findings of this examination were discussed with the patient as well as a family. She was advised to follow with the biopsy results. If the biopsy shows an adenoma she can have a repeat colonoscopy in 3-5 years.
[2020-09-20 11:14] VITALS: RESP 18
[2020-09-20 11:28] VITALS: BP 103/70; PULSE 73
== END 2020-09-20 11:53 | disposition home or self-care (01) ==
LOC: ORWHC2ENDO 09:08
PROVIDERS: ATTEND Internal Medicine Gastroenterology
DX: D12.5 Benign neoplasm of sigmoid colon (principal); Z86.010 Personal history of colon polyps; E78.5 Hyperlipidemia, unspecified; G71.00 Muscular dystrophy, unspecified; R41.3 Other amnesia; M19.90 Unspecified osteoarthritis, unspecified site; K21.9 Gastro-esophageal reflux disease without esophagitis; E07.9 Disorder of thyroid, unspecified; Z79.899 Other long term (current) drug therapy; Z79.890 Hormone replacement therapy; Z88.2 Allergy status to sulfonamides
CPT/HCPCS: 88305; 45385; J2001; J2704

== ENCOUNTER 2020-09-25 15:58 | Emergency (ER) | payer MEDICARE ==
[2020-09-25] MEDS ORDERED: MORPHINE SULFATE 4 MG/ML SYRINGE IVP STA (17:54)
[2020-09-25] MEDS ORDERED: ONDANSETRON 4 MG/2 ML VIAL IVP STA (17:54)
--- NOTE | 2020-09-25 18:17 | ED ---
GI Bleed HPI - General Chief complaint: GI Bleed Stated complaint: Blood in stool Time Seen by Provider: 09/25/20 17:41 Source: patient Mode of arrival: wheelchair Limitations: no limitations - History of Present Illness Initial comments: 60-year-old female patient presents to the emergency department today for evaluation of GI bleed. Patient states that since this morning she has had 5 episodes of bright red blood per rectum. States that she did have a colonoscopy with removal of polyps in one hemorrhoid about [address] Fletcher. Patient states that she has never had this much bleeding in the past. States she is having some mid back pain with radiation to the left upper quadrant that's been going on since before the procedure. She denies any hematuria, dysuria, urinary frequency, urinary urgency. Denies fever or chills. Denies any significant abdominal pain. States she does feel weak. Denies any dizziness or fainting. Patient denies any recent rash, cough, shortness of breath, chest pain, constipation, back pain, numbness, tingling, dizziness, weakness, headache, visual changes, or any other complaints. - Related Data Home Medications Medication Instructions Recorded Confirmed Acyclovir [Zovirax] 400 mg PO BID 01/01/18 09/25/20 Levothyroxine Sodium [Synthroid] 50 mcg PO DAILY 01/01/18 09/25/20 Pantoprazole Sodium [Protonix] 40 mg PO DAILY PRN 01/01/18 09/25/20 Vision Formula 1 tab PO DAILY 01/01/18 09/25/20 Vitamin B Complex 1 cap PO DAILY 01/01/18 09/25/20 Donepezil [Aricept] 5 mg PO DAILY 08/29/18 09/25/20 Multivitamin [Multivitamins Adult 1 tab PO DAILY 08/28/20 09/25/20 Gummies] Vitamin E 400 unit PO DAILY 08/28/20 09/25/20 Furosemide [Lasix] 20 mg PO DAILY 09/18/20 09/25/20 Ergocalciferol [Vitamin D2 (1250 1,250 mcg PO MELO 09/25/20 09/25/20 Mcg = [id number] Iu)] Allergies Allergy/AdvReac Type Severity Reaction Status Date / Time Sulfa (Sulfonamide Allergy Swelling, Verified 09/25/20 18:42 Antibiotics) REDNESS OF FACE Review of Systems ROS Statement: Those systems with pertinent positive or pertinent negative responses have been documented in the HPI. ROS Other: All systems not noted in ROS Statement are negative. Past Medical History Past Medical History: Cancer, Eye Disorder, Hyperlipidemia, Memory Impairment, Musculoskeletal Disorder, Osteoarthritis (OA), Thyroid Disorder Additional Past Medical History / Comment(s): muscular dystrophy, BACK PAIN , SKIN CANCER, MACULAR DEGENERATION , BLOOD IN STOOL History of Any Multi-Drug Resistant Organisms: None Reported Past Surgical History: Breast Surgery, Cholecystectomy, Hysterectomy, Orthopedic Surgery, Tonsillectomy Additional Past Surgical History / Comment(s): thYROID BX, ARTHROSCOPIC RIGHT KNEE ,COLONOSCOPY,RT BREAST BX WITH LUMPECTOMY Past Anesthesia/Blood Transfusion Reactions: Previous Problems w/ Anesthesia Additional Past Anesthesia/Blood Transfusion Reaction / Comment(s): pt states hard to wake up related to MUSCULAR DYSTROPHY - LONGER TO WAKE UP Past Psychological History: No Psychological Hx Reported Smoking Status: Never smoker Past Alcohol Use History: None Reported Past Drug Use History: None Reported - Past Family History Father Additional Family Medical History / Comment(s): MUSCULAR DYSTROPHY Mother Family Medical History: No Reported History General Exam Limitations: no limitations General appearance: alert, in no apparent distress, other (This is a well- developed, well-nourished adult female patient in no acute distress. Vital signs upon presentation are temperature 97.2F, pulse 85, respirations 20, blood pressure 100/71, pulse ox 96% on room air.) Eye exam: Present: normal appearance, PERRL, EOMI. Absent: scleral icterus, conjunctival injection, periorbital swelling ENT exam: Present: normal exam, normal oropharynx, mucous membranes moist Respiratory exam: Present: normal lung sounds bilaterally. Absent: respiratory distress, wheezes, rales, rhonchi, stridor Cardiovascular Exam: Present: regular rate, normal rhythm, normal heart sounds. Absent: systolic murmur, diastolic murmur, rubs, gallop, clicks GI/Abdominal exam: Present: soft, normal bowel sounds. Absent: distended, tenderness, guarding, rebound, rigid Neurological exam: Present: alert, oriented X3, CN II-XII intact Psychiatric exam: Present: normal affect, normal mood Skin exam: Present: warm, dry, intact, normal color. Absent: rash Course Vital Signs 09/25/20 17:30 Temperature 97.2 F L Pulse Rate 85 Respiratory 20 Rate Blood Pressure 100/71 O2 Sat by Pulse 96 Oximetry Medical Decision Making - Medical Decision Making 60-year-old female patient presents to the emergency department today for evaluation of rectal bleeding. Patient is postop day #5 after having colonoscopy with hemorrhoidectomy and polypectomy with Dr. Monique. Patient states bleeding started this morning she's had 5 episodes containing bright red blood. She does report feeling some weakness. Physical examination reveals soft nontender abdomen. Vital signs are stable. Labs reviewed and did reveal hemoglobin of 15.5. I did discuss the case with on-call GI specialist Dr. Perez who states that bleeding post polypectomy is common and generally is self limited. Recommended clear liquid diet and return tomorrow if not better. I did discuss findings and plan with the patient. She does feel comfortable being discharged at this time. She is to maintain low threshold for return. Return parameters were discussed in detail. She verbalizes understanding and agrees with this plan. Case discussed with my attending Dr. Whitney. - Lab Data Result diagrams: 09/25/20 18:12 09/25/20 18:12 Lab Results 09/25/20 09/25/20 09/25/20 Range/Units 18:12 18:12 18:12 WBC 7.6 (3.8-10.6) k/uL RBC 4.94 (3.80-5.40) m/uL Hgb 15.5 (11.4-16.0) gm/dL Hct 45.1 (34.0-46.0) % MCV 91.3 (80.0-100.0) fL MCH 31.3 (25.0-35.0) pg MCHC 34.3 (31.0-37.0) g/dL RDW 13.3 (11.5-15.5) % Plt Count 238 (150-450) k/uL MPV 7.3 Neutrophils % 65 % Lymphocytes % 28 % Monocytes % 4 % Eosinophils % 2 % Basophils % 1 % Neutrophils # 4.9 (1.3-7.7) k/uL Lymphocytes # 2.1 (1.0-4.8) k/uL Monocytes # 0.3 (0-1.0) k/uL Eosinophils # 0.1 (0-0.7) k/uL Basophils # 0.1 (0-0.2) k/uL PT 10.0 (9.0-12.0) sec INR 0.9 (<1.2) APTT 23.2 (22.0-30.0) sec Sodium 141 (137-145) mmol/L Potassium 4.8 (3.5-5.1) mmol/L Chloride 103 (98-107) mmol/L Carbon Dioxide 30 (22-30) mmol/L Anion Gap 8 mmol/L BUN 19 H (7-17) mg/dL Creatinine 0.52 (0.52-1.04) mg/dL Est GFR (CKD-EPI)AfAm >90 (>60 ml/min/1.73 sqM) Est GFR (CKD-EPI)NonAf >90 (>60 ml/min/1.73 sqM) Glucose 105 H (74-99) mg/dL Calcium 10.8 H (8.4-10.2) mg/dL Magnesium 2.4 H (1.6-2.3) mg/dL Total Bilirubin 0.4 (0.2-1.3) mg/dL AST 49 H (14-36) U/L ALT 46 H (4-34) U/L Alkaline Phosphatase 184 H (38-126) U/L Troponin I (0.000-0.034) ng/mL Total Protein 6.8 (6.3-8.2) g/dL Albumin 4.3 (3.5-5.0) g/dL 09/25/20 Range/Units 18:12 WBC (3.8-10.6) k/uL RBC (3.80-5.40) m/uL Hgb (11.4-16.0) gm/dL Hct (34.0-46.0) % MCV (80.0-100.0) fL MCH (25.0-35.0) pg MCHC (31.0-37.0) g/dL RDW (11.5-15.5) % Plt Count (150-450) k/uL MPV Neutrophils % % Lymphocytes % % Monocytes % % Eosinophils % % Basophils % % Neutrophils # (1.3-7.7) k/uL Lymphocytes # (1.0-4.8) k/uL Monocytes # (0-1.0) k/uL Eosinophils # (0-0.7) k/uL Basophils # (0-0.2) k/uL PT (9.0-12.0) sec INR (<1.2) APTT (22.0-30.0) sec Sodium (137-145) mmol/L Potassium (3.5-5.1) mmol/L Chloride (98-107) mmol/L Carbon Dioxide (22-30) mmol/L Anion Gap mmol/L BUN (7-17) mg/dL Creatinine (0.52-1.04) mg/dL Est GFR (CKD-EPI)AfAm (>60 ml/min/1.73 sqM) Est GFR (CKD-EPI)NonAf (>60 ml/min/1.73 sqM) Glucose (74-99) mg/dL Calcium (8.4-10.2) mg/dL Magnesium (1.6-2.3) mg/dL Total Bilirubin (0.2-1.3) mg/dL AST (14-36) U/L ALT (4-34) U/L Alkaline Phosphatase (38-126) U/L Troponin I <0.012 (0.000-0.034) ng/mL Total Protein (6.3-8.2) g/dL Albumin (3.5-5.0) g/dL - EKG Data -: EKG Interpreted by Dc EKG Comments: EKG obtained at 1820 shows sinus rhythm with first-degree AV block. Ventricular rate is 82, VT interval 236, QRS duration 148, QT 414, QTC 483. No evidence of ST elevation or depression. Disposition Clinical Impression: GI bleed, Post-op bleeding Disposition: HOME SELF-CARE Condition: Good Instructions (If sedation given, give patient instructions): Gastrointestinal Bleeding (ED) Additional Instructions: Follow clear liquid diet. Follow up with GI specialist for further evaluation as soon as possible. Return to the hospital if you have any further bleeding or passing out. Return for any new, worsening, or concerning symptoms. Is patient prescribed a controlled substance at d/c from ED?: No Referrals: Jon De La Torre MD [Primary Care Provider] - 1-2 days Leatha Monique MD [STAFF PHYSICIAN] - 1-2 days Time of Disposition: 19:34
[2020-09-25 18:19] LABS: Basophils # (A) 0.1 k/uL (0-0.2); Basophils % (A) 1 %; Eosinophils # (A) 0.1 k/uL (0-0.7); Eosinophils % (A) 2 %; HCT 45.1 % (34.0-46.0); HGB 15.5 gm/dL (11.4-16.0); Lymphocytes # (A) 2.1 k/uL (1.0-4.8); Lymphocytes % (A) 28 %; MCH 31.3 pg (25.0-35.0); MCHC 34.3 g/dL (31.0-37.0); MCV 91.3 fL (80.0-100.0); Mean Platelet Volume 7.3; Monocytes # (A) 0.3 k/uL (0-1.0); Monocytes % (A) 4 %; Neutrophils # (A) 4.9 k/uL (1.3-7.7); Neutrophils % (A) 65 %; Platelet Count 238 k/uL (150-450); RBC 4.94 m/uL (3.80-5.40); RDW 13.3 % (11.5-15.5); WBC 7.6 k/uL (3.8-10.6)
[2020-09-25 18:33] LABS: ALT 46 U/L (4-34); AST 49 U/L (14-36); African American GFR (CKD) >90 (>60 ml/min/1.73 sqM); Albumin 4.3 g/dL (3.5-5.0); Alkaline Phosphatase 184 U/L (38-126); Anion Gap 8 mmol/L; Blood Urea Nitrogen 19 mg/dL (7-17); Calcium 10.8 mg/dL (8.4-10.2); Carbon Dioxide 30 mmol/L (22-30); Chloride 103 mmol/L (98-107); Glucose 105 mg/dL (74-99); INR 0.9 (<1.2); Magnesium 2.4 mg/dL (1.6-2.3); Non-African American GFR(CKD) >90 (>60 ml/min/1.73 sqM); Partial Thromboplastin Time 23.2 sec (22.0-30.0); Potassium 4.8 mmol/L (3.5-5.1); Sodium 141 mmol/L (137-145); Total Bilirubin 0.4 mg/dL (0.2-1.3); Total Protein 6.8 g/dL (6.3-8.2)
[2020-09-25 19:53] VITALS: BP 104/76; PULSE 80; RESP 16; TEMP 98.3
== END 2020-09-25 19:53 | disposition home or self-care (01) ==
LOC: EC 15:58
DX: K91.840 Postprocedural hemorrhage of a digestive system organ or structure following a digestive system procedure (principal); K92.1 Melena; E07.9 Disorder of thyroid, unspecified; Z79.899 Other long term (current) drug therapy; Z79.890 Hormone replacement therapy; Z88.2 Allergy status to sulfonamides; Z90.49 Acquired absence of other specified parts of digestive tract; Z85.828 Personal history of other malignant neoplasm of skin
CPT/HCPCS: 36415; 93005; 80053; 83735; 84484; 85025; 85610; 85730; 99285; 96374; 96375; J2270; J2405

== ENCOUNTER → 2020-09-30 | Outpatient (CLI) | payer MEDICARE ==
--- NOTE | 2020-09-30 09:33 | MR ---
EXAMINATION TYPE: MR knee LT wo con DATE OF EXAM: 09/30/2020 COMPARISON: None HISTORY: L knee pain TECHNIQUE: Multiplanar, multisequence imaging of the left knee is performed without IV contrast. FINDINGS: MEDIAL MENISCUS: Posterior horn the medial meniscus shows abnormal increased signal extending to the articular surface, sagittal image #20 and 19 LATERAL MENISCUS: There is some abnormal increased signal especially in the anterior horn of the late ral meniscus. Findings may be degenerative signal, difficult to exclude a tear CRUCIATE LIGAMENTS: The anterior cruciate ligament shows abnormal increased signal proximally, marked attenuation. Posterior cruciate ligament shows some intrinsic increased signal which may be due to s train or degenerative change COLLATERAL LIGAMENTS: The medial collateral ligament and lateral collateral ligament complex are inta ct and unremarkable. EXTENSOR MECHANISM: Visualized quadriceps and patellar tendons are intact. EFFUSION: There is a small joint effusion. POPLITEAL CYST: No popliteal/gutiérrez cyst. TRICOMPARTMENT SPACES: Some marginal spurring present at the medial compartment CARTILAGE: There is some grade 2 to grade III chondromalacia suspected in the medial compartment, lat eral compartment BONE MARROW SIGNAL: Possible geode or intraosseous ganglion present at the intercondylar notch level within the proximal tibia. OTHER: No additional significant abnormality is appreciated. IMPRESSION: Tear the posterior horn of the medial meniscus. At least a partial tear of the anterior cruciate liga ment is suspected. Degenerative signal changes as described, osteoarthritis.
--- NOTE | 2020-09-30 15:16 | MR ---
EXAMINATION TYPE: MR knee RT wo con DATE OF EXAM: 09/30/2020 COMPARISON: None HISTORY: R knee pain TECHNIQUE: Multiplanar, multisequence imaging of the right knee is performed without IV contrast. FINDINGS: MEDIAL MENISCUS: At the peripheral margin of the posterior horn the medial meniscus there is some abn ormal increased signal, coronal image #23, sagittal image #7 shows some linear increased signal thoug ht to extend to the articular surface LATERAL MENISCUS: Some intrinsic increased signal is present within the anterior horn of the lateral meniscus without extension to the articular surface CRUCIATE LIGAMENTS: Anterior cruciate ligament shows abnormal increased intrinsic signal especially a t its origin, there may be some degeneration, ganglion cyst, partial tear, the tendon appears attenua lucia, the posterior horn shows some increased signal near its origin within the substance COLLATERAL LIGAMENTS: The medial collateral ligament and lateral collateral ligament complex are inta ct and unremarkable. EXTENSOR MECHANISM: Visualized quadriceps and patellar tendons are intact. EFFUSION: Small joint effusion present POPLITEAL CYST: No popliteal/gutiérrez cyst. TRICOMPARTMENT SPACES: Maintained CARTILAGE: No significant chondromalacia BONE MARROW SIGNAL: Possible geode present at the origin of the medial belly of the gastrocnemius mus trice OTHER: No additional significant abnormality is appreciated. IMPRESSION: Degenerative changes suspected within the cruciate ligaments as described. There is likely degenerati ve tear involving the posterior horn the medial meniscus peripherally with a joint effusion
== END | disposition home or self-care (01) ==
LOC: RADMRIMAIN 07:15
PROVIDERS: ATTEND Orthopaedic Surgery
DX: M17.12 Unilateral primary osteoarthritis, left knee (principal); S83.242A Other tear of medial meniscus, current injury, left knee, initial encounter; S83.241A Other tear of medial meniscus, current injury, right knee, initial encounter

== ENCOUNTER 2021-01-25 11:23 | Emergency (ER) | payer MEDICARE ==
[2021-01-25 11:32] VITALS: RESP 16; TEMP 97.5
[2021-01-25] MEDS ORDERED: SODIUM CHLORIDE 0.9% 1,000 ML IV STA (12:00)
[2021-01-25 12:17] LABS: Basophils % (A) 1 %; Eosinophils # (A) 0.2 k/uL (0-0.7); Eosinophils % (A) 2 %; HCT 47.5 % (34.0-46.0); HGB 15.5 gm/dL (11.4-16.0); Lymphocytes # (A) 2.3 k/uL (1.0-4.8); Lymphocytes % (A) 36 %; MCH 30.1 pg (25.0-35.0); MCHC 32.6 g/dL (31.0-37.0); MCV 92.3 fL (80.0-100.0); Mean Platelet Volume 7.6; Monocytes # (A) 0.3 k/uL (0-1.0); Monocytes % (A) 4 %; Neutrophils # (A) 3.5 k/uL (1.3-7.7); Neutrophils % (A) 55 %; Platelet Count 231 k/uL (150-450); RBC 5.15 m/uL (3.80-5.40); RDW 13.7 % (11.5-15.5); WBC 6.4 k/uL (3.8-10.6)
[2021-01-25 12:26] LABS: INR 0.9 (<1.2); Partial Thromboplastin Time 23.1 sec (22.0-30.0); Prothrombin Time 10.1 sec (9.0-12.0)
[2021-01-25 12:27] LABS: ALT 29 U/L (4-34); AST 33 U/L (14-36); African American GFR (CKD) >90 (>60 ml/min/1.73 sqM); Albumin 4.2 g/dL (3.5-5.0); Alkaline Phosphatase 187 U/L (38-126); Anion Gap 9 mmol/L; Blood Urea Nitrogen 12 mg/dL (7-17); Calcium 11.1 mg/dL (8.4-10.2); Carbon Dioxide 29 mmol/L (22-30); Chloride 104 mmol/L (98-107); Glucose 103 mg/dL (74-99); Non-African American GFR(CKD) >90 (>60 ml/min/1.73 sqM); Sodium 142 mmol/L (137-145); Total Bilirubin 0.3 mg/dL (0.2-1.3); Total Protein 6.7 g/dL (6.3-8.2)
[2021-01-25 13:00] LABS: Appearance,Urine Clear (Clear); Bilirubin,Urine Negative (Negative); Blood,Urine Negative (Negative); Color,Urine Light Yellow; Glucose,Urine (UA) Negative (Negative); Ketones,Urine Negative (Negative); Leukocyte Esterase,Urine Negative (Negative); Nitrite,Urine Negative (Negative); Protein,Urine Negative (Negative); Specific Gravity,Urine 1.004 (1.001-1.035); Urobilinogen,Urine <2.0 mg/dL (<2.0)
--- NOTE | 2021-01-25 13:02 | XR ---
EXAMINATION TYPE: XR chest 2V DATE OF EXAM: 01/25/2021 COMPARISON: NONE HISTORY: Shortness of breath TECHNIQUE: Frontal and lateral views of the chest are obtained. FINDINGS: Scattered senescent parenchymal changes noted. Hyperinflation compatible with COPD. No evidence for infiltrate. No evidence for atelectasis. Heart size is stable. Mediastinal structures are stable and grossly unremarkable. No evidence for hilar prominence. Degenerative changes dorsal spine. IMPRESSION: 1. No evidence for acute pulmonary disease.
--- NOTE | 2021-01-25 13:31 | ED ---
Dizziness HPI - General Chief Complaint: Dizziness Stated Complaint: dizziness Time Seen by Provider: 01/25/21 11:49 Source: patient, RN notes reviewed Mode of arrival: wheelchair Limitations: no limitations - History of Present Illness Initial Comments: Patient is a 60-year-old female that presents to emergency room complaining of generalized weakness not feeling well for the past several weeks. She notes she does have a history of muscular dystrophy but no other issues. She denied any cardiac history or pulmonary history. She was otherwise a well-appearing 60-year-old female in no apparent distress or pain while sitting up in bed during exam and interview. She denied any chest pain shortness of breath headache nausea vomiting diarrhea constipation fever fatigue chills. - Related Data Home Medications Medication Instructions Recorded Confirmed Acyclovir [Zovirax] 400 mg PO BID 01/01/18 09/25/20 Levothyroxine Sodium [Synthroid] 50 mcg PO DAILY 01/01/18 09/25/20 Pantoprazole Sodium [Protonix] 40 mg PO DAILY PRN 01/01/18 09/25/20 Vision Formula 1 tab PO DAILY 01/01/18 09/25/20 Vitamin B Complex 1 cap PO DAILY 01/01/18 09/25/20 Donepezil [Aricept] 5 mg PO DAILY 08/29/18 09/25/20 Multivitamin [Multivitamins Adult 1 tab PO DAILY 08/28/20 09/25/20 Gummies] Vitamin E 400 unit PO DAILY 08/28/20 09/25/20 Furosemide [Lasix] 20 mg PO DAILY 09/18/20 09/25/20 Ergocalciferol [Vitamin D2 (1250 1,250 mcg PO MELO 09/25/20 09/25/20 Mcg = [id number] Iu)] Allergies Allergy/AdvReac Type Severity Reaction Status Date / Time Sulfa (Sulfonamide Allergy Swelling, Verified 01/25/21 11:29 Antibiotics) REDNESS OF FACE Review of Systems ROS Statement: Those systems with pertinent positive or pertinent negative responses have been documented in the HPI. ROS Other: All systems not noted in ROS Statement are negative. Past Medical History Past Medical History: Cancer, Eye Disorder, Hyperlipidemia, Memory Impairment, Musculoskeletal Disorder, Osteoarthritis (OA), Thyroid Disorder Additional Past Medical History / Comment(s): muscular dystrophy, BACK PAIN , SKIN CANCER, MACULAR DEGENERATION , BLOOD IN STOOL History of Any Multi-Drug Resistant Organisms: None Reported Past Surgical History: Breast Surgery, Cholecystectomy, Hysterectomy, Orthopedic Surgery, Tonsillectomy Additional Past Surgical History / Comment(s): thYROID BX, ARTHROSCOPIC RIGHT KNEE ,COLONOSCOPY,RT BREAST BX WITH LUMPECTOMY Past Anesthesia/Blood Transfusion Reactions: Previous Problems w/ Anesthesia Additional Past Anesthesia/Blood Transfusion Reaction / Comment(s): pt states hard to wake up related to MUSCULAR DYSTROPHY - LONGER TO WAKE UP Past Psychological History: No Psychological Hx Reported Smoking Status: Never smoker Past Alcohol Use History: None Reported Past Drug Use History: None Reported - Past Family History Father Additional Family Medical History / Comment(s): MUSCULAR DYSTROPHY Mother Family Medical History: No Reported History General Exam Limitations: no limitations General appearance: alert, in no apparent distress Head exam: Present: atraumatic, normocephalic, normal inspection Eye exam: Present: normal appearance, PERRL, EOMI. Absent: scleral icterus, conjunctival injection, periorbital swelling Neck exam: Present: normal inspection Respiratory exam: Present: normal lung sounds bilaterally. Absent: respiratory distress, wheezes, rales, rhonchi, stridor Cardiovascular Exam: Present: regular rate, normal rhythm, normal heart sounds. Absent: systolic murmur, diastolic murmur, rubs, gallop, clicks GI/Abdominal exam: Present: soft, normal bowel sounds. Absent: distended, tenderness, guarding, rebound, rigid Neurological exam: Present: alert, oriented X3 Psychiatric exam: Present: normal affect, normal mood Skin exam: Present: warm, dry, intact, normal color. Absent: rash Course Vital Signs 01/25/21 11:29 Temperature 97.5 F L Pulse Rate 88 Respiratory 16 Rate Blood Pressure 124/83 O2 Sat by Pulse 92 L Oximetry EKG Findings - EKG Comments: EKG Findings:: Ventricular rate 79 bpm, LA interval 228 ms, QRS duration 156 ms, QTC 486 ms, PRT axes 143/-30/146, unusual P axis possible ectopic atrial rhythm, left axis deviation, left ventricular hypertrophy with QRS widening and repolarization abnormality, abnormal ECG. Medical Decision Making - Medical Decision Making 60-year-old female complaining of generalized weakness for the past several weeks. Labs, EKG, monitor and storage bin tender, 1 L normal saline, chest x-ray ordered. Labs unremarkable. Chest x-ray negative for any acute process. EKG similar to previous studies. - Lab Data Result diagrams: 01/25/21 Unknown 01/25/21 Unknown Lab Results 01/25/21 01/25/21 01/25/21 Range/Units Unknown Unknown Unknown WBC 6.4 (3.8-10.6) k/uL RBC 5.15 (3.80-5.40) m/uL Hgb 15.5 (11.4-16.0) gm/dL Hct 47.5 H (34.0-46.0) % MCV 92.3 (80.0-100.0) fL MCH 30.1 (25.0-35.0) pg MCHC 32.6 (31.0-37.0) g/dL RDW 13.7 (11.5-15.5) % Plt Count 231 (150-450) k/uL MPV 7.6 Neutrophils % 55 % Lymphocytes % 36 % Monocytes % 4 % Eosinophils % 2 % Basophils % 1 % Neutrophils # 3.5 (1.3-7.7) k/uL Lymphocytes # 2.3 (1.0-4.8) k/uL Monocytes # 0.3 (0-1.0) k/uL Eosinophils # 0.2 (0-0.7) k/uL Basophils # 0.0 (0-0.2) k/uL PT 10.1 (9.0-12.0) sec INR 0.9 (<1.2) APTT 23.1 (22.0-30.0) sec Sodium (137-145) mmol/L Potassium (3.5-5.1) mmol/L Chloride (98-107) mmol/L Carbon Dioxide (22-30) mmol/L Anion Gap mmol/L BUN (7-17) mg/dL Creatinine (0.52-1.04) mg/dL Est GFR (CKD-EPI)AfAm (>60 ml/min/1.73 sqM) Est GFR (CKD-EPI)NonAf (>60 ml/min/1.73 sqM) Glucose (74-99) mg/dL Plasma Lactic Acid Delfin (0.7-2.0) mmol/L Calcium (8.4-10.2) mg/dL Total Bilirubin (0.2-1.3) mg/dL AST (14-36) U/L ALT (4-34) U/L Alkaline Phosphatase (38-126) U/L Troponin I (0.000-0.034) ng/mL Total Protein (6.3-8.2) g/dL Albumin (3.5-5.0) g/dL Urine Color Light Yellow Urine Appearance Clear (Clear) Urine pH 5.0 (5.0-8.0) Ur Specific [place] 1.004 (1.001-1.035) Urine Protein Negative (Negative) Urine Glucose (UA) Negative (Negative) Urine Ketones Negative (Negative) Urine Blood Negative (Negative) Urine Nitrite Negative (Negative) Urine Bilirubin Negative (Negative) Urine Urobilinogen <2.0 (<2.0) mg/dL Ur Leukocyte Esterase Negative (Negative) 01/25/21 01/25/21 01/25/21 Range/Units Unknown Unknown Unknown WBC (3.8-10.6) k/uL RBC (3.80-5.40) m/uL Hgb (11.4-16.0) gm/dL Hct (34.0-46.0) % MCV (80.0-100.0) fL MCH (25.0-35.0) pg MCHC (31.0-37.0) g/dL RDW (11.5-15.5) % Plt Count (150-450) k/uL MPV Neutrophils % % Lymphocytes % % Monocytes % % Eosinophils % % Basophils % % Neutrophils # (1.3-7.7) k/uL Lymphocytes # (1.0-4.8) k/uL Monocytes # (0-1.0) k/uL Eosinophils # (0-0.7) k/uL Basophils # (0-0.2) k/uL PT (9.0-12.0) sec INR (<1.2) APTT (22.0-30.0) sec Sodium 142 (137-145) mmol/L Potassium 4.0 (3.5-5.1) mmol/L Chloride 104 (98-107) mmol/L Carbon Dioxide 29 (22-30) mmol/L Anion Gap 9 mmol/L BUN 12 (7-17) mg/dL Creatinine 0.47 L (0.52-1.04) mg/dL Est GFR (CKD-EPI)AfAm >90 (>60 ml/min/1.73 sqM) Est GFR (CKD-EPI)NonAf >90 (>60 ml/min/1.73 sqM) Glucose 103 H (74-99) mg/dL Plasma Lactic Acid Delfin 1.9 (0.7-2.0) mmol/L Calcium 11.1 H (8.4-10.2) mg/dL Total Bilirubin 0.3 (0.2-1.3) mg/dL AST 33 (14-36) U/L ALT 29 (4-34) U/L Alkaline Phosphatase 187 H (38-126) U/L Troponin I <0.012 (0.000-0.034) ng/mL Total Protein 6.7 (6.3-8.2) g/dL Albumin 4.2 (3.5-5.0) g/dL Urine Color Urine Appearance (Clear) Urine pH (5.0-8.0) Ur Specific [place] (1.001-1.035) Urine Protein (Negative) Urine Glucose (UA) (Negative) Urine Ketones (Negative) Urine Blood (Negative) Urine Nitrite (Negative) Urine Bilirubin (Negative) Urine Urobilinogen (<2.0) mg/dL Ur Leukocyte Esterase (Negative) - Radiology Data Radiology results: report reviewed, image reviewed Chest x-ray: No acute cardiopulmonary process. Disposition Clinical Impression: Dehydration, Weakness Disposition: HOME SELF-CARE Condition: Stable Instructions (If sedation given, give patient instructions): Dizziness (ED) Additional Instructions: Please return to the Emergency Department if symptoms worsen or any other concerns. Follow-up primary care in next 1-2 days. Increase oral fluids, and oral fluid intake. Is patient prescribed a controlled substance at d/c from ED?: No Referrals: Jon De La Torre MD [Primary Care Provider] - 1-2 days Time of Disposition: 13:45
[2021-01-25 13:48] VITALS: BP 116/79; PULSE 73
== END 2021-01-25 14:05 | disposition home or self-care (01) ==
LOC: EC 11:23
DX: E86.0 Dehydration (principal); E78.5 Hyperlipidemia, unspecified; M19.90 Unspecified osteoarthritis, unspecified site; Z85.828 Personal history of other malignant neoplasm of skin; Z88.2 Allergy status to sulfonamides
CPT/HCPCS: 36415; 71046; 80053; 81003; 83605; 84484; 85025; 85610; 85730; 93005; 96360; 99285

== ENCOUNTER → 2021-06-13 | Outpatient (CLI) | payer MEDICARE ==
--- NOTE | 2021-06-16 14:02 | MM ---
Reason for exam: screening (asymptomatic). Last mammogram was performed 1 year and 3 months ago. History: Patient is postmenopausal, has history of high-risk lesion on a previous biopsy at age 58, history of other cancer, and is nulliparous. Family history of breast cancer in 2 maternal aunts at age 60, breast cancer in 2 other maternal aunts, and breast cancer in maternal grandmother. Benign US breast localization RT of the right breast, October 21, 2018. High risk US biopsy breast VAD RT of the right breast, September 08, 2018. Took estrogen for 8 years beginning at age 40. Physical Findings: A clinical breast exam by your physician is recommended on an annual basis and results should be correlated with mammographic findings. MG 3D Screening Mammo W/Cad Bilateral CC and MLO view(s) were taken. Prior study comparison: March 05, 2020, bilateral MG 3d screening mammo w/cad. September 08, 2018, right breast MG diagnostic mammo RT wo CAD. The breast tissue is heterogeneously dense. This may lower the sensitivity of mammography. No significant changes when compared with prior studies. ASSESSMENT: Benign, BI-RAD 2 RECOMMENDATION: Routine screening mammogram of both breasts in 1 year.
== END | disposition home or self-care (01) ==
LOC: RADMAMWWP 10:45
PROVIDERS: ATTEND Internal Medicine
DX: Z12.31 Encounter for screening mammogram for malignant neoplasm of breast (principal); Z80.3 Family history of malignant neoplasm of breast; Z78.0 Asymptomatic menopausal state
CPT/HCPCS: 77063; 77067

== ENCOUNTER → 2021-06-23 | Outpatient (CLI) | payer MEDICARE ==
[~2021-06-23] MED LIST changes: -LACTATED RINGERS 1,000 ML IV SCH; +REGADENOSON 0.4 MG/5 ML SYRINGE IV PRN
--- NOTE | 2021-06-23 13:16 | NM ---
"EXAMINATION TYPE: NM stress lexiscan cardiolite DATE OF EXAM: 06/23/2021 COMPARISON: NONE HISTORY: Unspecified cardiomyopathy. TECHNIQUE: After the intravenous administration of 9.54 mCi Tc 99m Sestamibi - Cardiolite resting SP ECT images acquired 65 minutes post injection. The patient received 0.4mg Lexiscan, 23.6 mCi Tc 99m Sestamibi - Stress images obtained [address] injection FINDINGS: Review of stress and rest SPECT images demonstrates poor uptake involving the septal wall on short ax is along with horizontal long axis views stress images versus rest images and acute ischemia at this level cannot be excluded. This extends from base to apical segment.. Gated analysis shows overall es timated left ventricular ejection fraction of 63 %. IMPRESSION: Possible artifact but area of acute ischemia cannot be excluded in the septal wall. Cons ider direct catheter angiogram to further evaluate. A Yellow level critical message alert has been initiated for Lata Domínguez MD via the [facility] 0 | Critical Results System on 06/23/2021 1:13 PM. This message alert has been sent to Lata Domínguez MD via the preferences provided by the clinician for the receipt of Radiology Critical Findings. [facility] [id number]."
--- NOTE | 2021-06-23 16:04 | EST ---
EXERCISE STRESS AGE: 61 SEX: F HT: 5'3" WT: 145 lbs. PROTOCOL: Lexiscan Cardiolite STAGE: NA DURATION OF EXERCISE: NA HEART RATE REST: 73 BLOOD PRESSURE REST: 122/74 MAXIMUM HEART RATE ACHIEVED: 99 MAXIMUM BLOOD PRESSURE: 128/69 85% MPHR: 137 100% MPHR: 161 METS: NA INDICATIONS: Chest pain. CLINICAL INFORMATION: STRESS DATA: Heart rate 73, pressure 122/74 mmHg. Baseline EKG showed sinus mechanism with . 0.4 mg of Lexiscan was given over 15 seconds per protocol. Max heart rate was 99 beats per minute. Maximum pressure was 128/69 mmHg. Clinically the patient did not have any symptoms. The EKG did not show any significant ST or T-wave abnormalities concerning for ischemia. CONCLUSION: 1. Nondiagnostic electrocardiogram stress testing in response to Lexiscan. 2. Please follow up on the Cardiolite portion on a separate report from Radiology Department. MMODL / IJN: [id number] /
== END | disposition home or self-care (01) ==
LOC: RADNMMAIN 08:43
PROVIDERS: ATTEND Internal Medicine Interventional Cardiology
DX: I42.9 Cardiomyopathy, unspecified (principal)
CPT/HCPCS: 93017; 78452; A9500; J2785

== ENCOUNTER 2021-07-17 06:25 | Day surgery (SDC) | payer MEDICARE ==
[2021-07-14 11:13] VITALS: BMI 25.7
[~2021-07-17 06:25] MED LIST changes: +ALPRAZolam 0.25 MG TAB PO PRN; +ALPRAZolam 0.5 MG TAB PO PRN; +ASPIRIN 325 MG TAB PO STA; +ATORVASTATIN 80 MG TAB PO STA; +NITROGLYCERIN SL TABS 0.4 MG TAB SUBLINGUAL PRN; -REGADENOSON 0.4 MG/5 ML SYRINGE IV PRN; +SODIUM CHLORIDE 0.9% 1,000 ML in EMPTY BAG 1 BAG IV SCH
[2021-07-17 07:02] VITALS: RESP 16; TEMP 98.3
[2021-07-17] MEDS ORDERED: fentaNYL (PF) 50 MCG/ML 2 ML AMP ONE (07:24)
[2021-07-17] MEDS ORDERED: HEPARIN SODIUM 1,000 UN/ML (10ML VL) ONE (07:24)
[2021-07-17] MEDS ORDERED: fentaNYL (PF) 50 MCG/ML 2 ML AMP IV ONE (07:35)
[2021-07-17] MEDS ORDERED: LIDOCAINE 1% INJ 10MG/ML (20 ML MDV) SQ ONE (07:39)
[2021-07-17] MEDS ORDERED: MIDAZOLAM 2 MG/2 ML VIAL IV ONE (07:40)
[2021-07-17] MEDS ORDERED: VERAPAMIL SYRINGE (5 MG/10 ML) INTRAARTER ONE (07:40)
[2021-07-17] MEDS ORDERED: HEPARIN SODIUM 1,000 UN/ML (10ML VL) IV ONE (07:47)
[2021-07-17] MEDS ORDERED: IOPAMIDOL-370 125ML BTL INJ ONE (07:54)
[2021-07-17] MEDS ORDERED: IOPAMIDOL-370 100ML BTL INJ ONE (07:54)
[2021-07-17] MEDS ORDERED: RX INFO: IV CONTRAST WAS GIVEN 1 EACH MISC MISCELLANE PRN (08:07)
[2021-07-17] MEDS ORDERED: PANTOPRAZOLE 40 MG TABLET PO PRN (08:07)
[2021-07-17] MEDS ORDERED: SODIUM CHLORIDE 0.9% 1,000 ML IV SCH (08:15)
[2021-07-17] MEDS ORDERED: NON FORMULARY DRUG (Vitamin B Complex [Vitamin B Complex] 1 EACH Capsule) PO SCH (09:00)
[2021-07-17] MEDS ORDERED: NON FORMULARY DRUG (Multivitamin [Multivitamins Adult Gummies] 1 EACH Tablet) PO SCH (09:00)
[2021-07-17] MEDS ORDERED: ACYCLOVIR 200 MG CAP PO SCH (09:00)
[2021-07-17] MEDS ORDERED: LEVOTHYROXINE 50 MCG TAB PO SCH (09:00)
[2021-07-17] MEDS ORDERED: VITAMIN E 400 UNIT PO SCH (09:00)
[2021-07-17] MEDS ORDERED: DONEPEZIL 5 MG TAB PO SCH (09:00)
[2021-07-17] MEDS ORDERED: VISION FORMULA PO SCH (09:00)
--- NOTE | 2021-07-17 11:34 | CC ---
CARDIAC CATHETERIZATION REPORT Mrs. Gruber is a 61-year-old female with a history of muscular dystrophy who has been complaining of symptoms of progressive dyspnea. Her echocardiogram showed segmental wall motion abnormality and she had myocardial perfusion imaging that was consistent with stress-induced ischemia. In view of that, recommendation was made regarding cardiac catheterization. The procedure as well as risks and complications were discussed with the patient, who was in full understanding and agreement. PROCEDURE DESCRIPTION: Patient was brought to the petroleum laboratory technician in a fasting, semi-sedated state after receiving fentanyl and Benadryl and achieving a moderate conscious sedated state. Using Xylocaine anesthesia and Seldinger technique, a 6-Kittitian sheath was introduced in the right radial artery. Selective right and left coronary angiography was performed using 5-Kittitian 3.5 bend right and left Diane catheters. Multiple views were taken of the arteries, including hemiaxial views. Following that, a 5-Kittitian tight pigtail catheter was introduced into the left ventricle and a 30-degree VELASQUEZ view of the left ventricle was obtained. Following that, catheter and sheath were removed. Hemostasis was obtained with deployment of a TR band. There was no immediate complication. Patient was returned to her room in stable condition. FINDINGS: LEFT MAIN: This is a short-sized vessel bifurcating into left circumflex and left anterior descending artery. Left main coronary artery has no evidence of high-grade stenosis. LEFT ANTERIOR DESCENDING ARTERY: This is a large-sized vessel reaching to the apex with a wrap around the apex segment giving rise to 2 diagonal branches. The left anterior descending artery as well as its branches have no evidence of obstructive coronary artery disease. LEFT CIRCUMFLEX: This is a large codominant vessel giving rise to 2 obtuse marginal branches and distally to PDA and PLV. The left circumflex as well as its branches have no evidence of obstructive coronary artery disease. RIGHT CORONARY ARTERY: This is a codominant vessel giving rise to a PDA. The right coronary artery as well as its branches have no evidence of obstructive disease. LEFT VENTRICULOGRAM: Left ventriculogram was performed in 30-degree VELASQUEZ view and revealed normal left ventricular size. There was evidence of apical hypokinesis. The ejection fraction is estimated at 45%. There was no significant mitral regurgitation. HEMODYNAMICS: There was no gradient across the aortic valve. The left ventricular end- diastolic pressure was 14 to 18 mmHg. CONCLUSION: 1. Normal coronary arteries. 2. Mild cardiomyopathy with segmental wall motion abnormality. RECOMMENDATIONS: In view of findings and anatomy, I recommend continued medical therapy with the aggressive coronary risk factor modifications that have been initiated. Depending on her progress, further recommendations will be made. Those findings and recommendations were discussed with the patient and her family, who are in full understanding and agreement. Duration of sedation 15 minutes. ADAMS / SAIMAN: [id number] /
[2021-07-17 11:54] VITALS: BP 130/91; PULSE 70
[2021-07-20] MEDS ORDERED: ERGOCALCIFEROL 1,250 MCG (50,000 IU) CAPSULE PO SCH (08:07)
== END 2021-07-17 11:57 | disposition home or self-care (01) ==
LOC: CATHCVL 06:25
PROVIDERS: ATTEND Internal Medicine Interventional Cardiology
DX: R94.39 Abnormal result of other cardiovascular function study (principal); I42.9 Cardiomyopathy, unspecified; G71.00 Muscular dystrophy, unspecified; I44.7 Left bundle-branch block, unspecified; E78.2 Mixed hyperlipidemia; E89.0 Postprocedural hypothyroidism; Z20.822 Contact with and (suspected) exposure to COVID-19; Z79.899 Other long term (current) drug therapy; Z79.890 Hormone replacement therapy; Z88.2 Allergy status to sulfonamides; Z90.710 Acquired absence of both cervix and uterus; Z90.49 Acquired absence of other specified parts of digestive tract; Z98.890 Other specified postprocedural states; Z82.49 Family history of ischemic heart disease and other diseases of the circulatory system
CPT/HCPCS: 93458; 87635; J2250; J2001; J3010; J1644; Q9967

== ENCOUNTER → 2022-05-14 | Outpatient (CLI) | payer MEDICARE ==
--- NOTE | 2022-05-14 13:32 | MR ---
EXAMINATION TYPE: MR lumbar spine wo con DATE OF EXAM: 05/14/2022 COMPARISON: Lumbar spine radiograph 05/07/2022 HISTORY: M51.37 INTERVERTEBRAL DISC DEGENERATION TECHNIQUE: Multiplanar, multisequence images of the lumbar spine were acquired without IV contrast. FINDINGS: Lumbar segments are intact. No paraspinal masses are identified. Conus medullaris has a normal appe arance. Type 2 Modic changes involving L5-S1. Disc desiccation is present at L4-L5 and L5-S1. L1-L2: No herniation, protrusion or disc bulging. No canal stenosis is present. Foramina are patent bilaterally. L2-L3: No herniation, protrusion or disc bulging. No canal stenosis is present. Facet arthropathy wi th ligamentum flavum buckling. The neuroforamina are patent bilaterally. L3-L4: No herniation, protrusion or disc bulging. No canal stenosis is present. Facet arthropathy wi th ligamenta flavum buckling. The neural foramen are patent bilaterally. L4-L5: No herniation, protrusion or disc bulging. No canal stenosis is present. Bilateral facet arth ropathy with ligamentum flavum buckling. Mild bilateral neural foraminal stenosis. L5-S1: No herniation, protrusion or disc bulging. No canal stenosis is present. Foramina are patent bilaterally. Facet arthropathy. IMPRESSION: 1. No disc herniation or significant central canal stenosis. 2. Mild degenerative disc and osteoarthritic changes as described above.
== END | disposition home or self-care (01) ==
LOC: RADMRIMAIN 12:40
PROVIDERS: ATTEND Internal Medicine
DX: M51.37 Other intervertebral disc degeneration, lumbosacral region (principal); M47.816 Spondylosis without myelopathy or radiculopathy, lumbar region
CPT/HCPCS: 72148

== ENCOUNTER → 2023-04-08 | Outpatient (CLI) | payer MEDICARE ==
--- NOTE | 2023-04-08 18:33 | US ---
EXAMINATION TYPE: US abdomen complete DATE OF EXAM: 04/08/2023 COMPARISON: US 2017 CLINICAL INDICATION: Female, 63 years old with history of R74.8 ABNORMAL LEVELS OF OTHER SERUM ENZYME S; TECHNIQUE: Multiple sonographic images of the abdomen are obtained. FINDINGS: EXAM MEASUREMENTS: Liver Length: 14.4 cm CBD: 0.5 cm Spleen: 9.8 cm Right Kidney: 11.0 x 6.0 x 5.5 cm Left Kidney: 10.9 x 5.9 x 6.0 cm Pancreas: obscured by overlying midline bowel gas Liver: limited visualization, scanned intercostally Gallbladder: surgically absent Evidence for sonographic Waad's sign: no CBD: wnl Spleen: visualized portions wnl, limited by overlying bowel gas Right Kidney: wnl Left Kidney: wnl Upper IVC: wnl Abd Aorta: wnl IMPRESSION: Suboptimal visualization of the pancreas. Otherwise, unremarkable sonographic examination of the abdo men.
== END | disposition home or self-care (01) ==
LOC: RADUSWWP 10:28
PROVIDERS: ATTEND Family Medicine
DX: R74.8 Abnormal levels of other serum enzymes (principal)
CPT/HCPCS: 76700

== ENCOUNTER → 2023-04-27 | Outpatient (CLI) | payer MEDICARE ==
--- NOTE | 2023-04-27 12:11 | CT ---
EXAMINATION TYPE: CT angio chest CT DLP: 411.40 mGycm, Automated exposure control for dose reduction was used. DATE OF EXAM: 04/27/2023 12:00 PM COMPARISON: None CLINICAL INDICATION:Female, 63 years old with history of G23.1 BICUSPID AORTIC VALVE; Bicuspid aortic valve, thoracic AA w/o rupture TECHNIQUE/CONTRAST: CTA scan of the thorax is performed with IV Contrast, patient injected with 100 mL of Isovue 370, MIP images are created and reviewed these are created on a separate workstation.. FINDINGS: Lungs/Pleura: No evidence of focal consolidation, pleural effusion or pneumothorax. Right middle lobe calcified granuloma. Streaky atelectasis/scarring. Airway: Large airways are patent. Heart: Heart is within normal limits for size. Vasculature: No evidence for intramural hematoma on noncontrast imaging. No evidence of intimal flap to suggest dissection. No aneurysm identified. Scattered atherosclerotic disease. There is a three-ve ssel aortic arch. The major vessels are patent. Mediastinum: No gross evidence of adenopathy. Musculoskeletal: No acute osseous abnormalities Soft Tissues: Unremarkable. Lower neck: Right thyroid gland pulmonary nodule inferiorly measuring up to 8 mm. Upper Abdomen: The gallbladder surgically absent. IMPRESSION: No evidence for aortic aneurysm. The ascending and descending thoracic aorta are within normal limits for size. No evidence for dissection. No evidence for occlusion. There is scattered atherosclerotic disease throughout the aorta.
== END | disposition home or self-care (01) ==
LOC: RADCTMAIN 11:11 → MERGE 11:15
PROVIDERS: ATTEND Internal Medicine Interventional Cardiology
DX: Q23.1 Congenital insufficiency of aortic valve (principal); I70.0 Atherosclerosis of aorta
CPT/HCPCS: 71275; Q9967

== ENCOUNTER → 2023-06-01 | Outpatient (CLI) | payer MEDICARE ==
--- NOTE | 2023-06-01 21:50 | MR ---
EXAMINATION TYPE: MR brain wo/w con DATE OF EXAM: 06/01/2023 COMPARISON: 01/01/2018 HISTORY: Memory loss, hx of muscular dystrophy CONTRAST: Performed utilizing 6 mL intravenous Gadavist gadolinium contrast. TECHNIQUE: Multiplanar, multiecho imaging on a 3.0 Jocelyne magnet is performed through the brain. Stud y is performed within 24 hours of arrival to the hospital. The craniovertebral junction is normal. The pituitary is normal. Diffusion-weighted imaging is performed. No abnormal hyperintensity is present to suggest an acute i ntracranial infarct or acute ischemic change. A small dural based extra-axial mass may be present at the left mid apex measuring 0.9 x 0.9 cm. Exam ple series 701, image 68. Scattered subcortical white matter changes are within the anterior temporal lobes. Periventricular wh ite matter patchy changes in subcortical white matter changes bilaterally within the centrum semioval e and briceno radiata levels is present. Differential diagnosis should include but is not limited to m ultiple sclerosis, microvascular ischemic change, vasculitis, Lyme disease. Ventricles and sulci are prominent for the patient age. No suspicious enhancement is evident. IMPRESSION: 1. Diffuse white matter changes. Differential diagnosis discussed above. Correlate with the patient's symptoms. 2. Small meningioma along the posterior vertex may be present.
== END | disposition home or self-care (01) ==
LOC: MERGE 04-20 13:03 → RADMRIMAIN 10:03
PROVIDERS: ATTEND Family Medicine
DX: G93.89 Other specified disorders of brain (principal); R41.3 Other amnesia
CPT/HCPCS: 70553; A9585

== ENCOUNTER → 2023-09-14 | Outpatient (CLI) | payer MEDICARE ==
--- NOTE | 2023-09-14 19:17 | BD ---
EXAMINATION TYPE: Axial Bone Density DATE OF EXAM: 09/14/2023 CLINICAL HISTORY: 63 years old Female. ICD-10 CODE: Z13.820 SCREENING FOR OSTEOPO, Z78.0 ASYMPTOMATI C MENOPAUSAL Height: 62 Weight: 139 FRAX RISK QUESTIONS: Family History (Parent hip fracture): yes History of Fracture in Adulthood: yes Secondary Osteoporosis: yes 3. Menopause before 45: yes RISK FACTORS HISTORY OF: Surgery to Spine/Hip(right/left)/Wrist (right/left): no MEDICATIONS: Thyroid Medications: yes Which medication: Synthroid How Lon+ years Osteoporosis Medications: no EXAM MEASUREMENTS: Bone mineral densitometry was performed using the [employer] System. Bone mineral density as measured about the Lumbar spine is: ----- L1-L4(G/cm2): 1.298 T Score Values are as follows: ----- L1: 0.0 ----- L2: 0.6 ----- L3: 1.4 ----- L4: 1.5 ----- L1-L4: 1.0 Z Score Values are as follows: ----- L1: 1.4 ----- L2: 1.9 ----- L3: 2.8 ----- L4: 2.9 ----- L1-L4: 2.3 Bone mineral density has: Decreased -6.4% since study of: 05/17/2020 Bone mineral density about the R hip (g/cm2): 1.109 Bone mineral density about the L hip (g/cm2): 1.128 T Score values are as follows: -----R Neck: 0.0 -----L Neck: 0.1 -----R Total: 0.8 -----L Total: 1.0 Z Score values are as follows: -----R Neck: 1.4 -----L Neck: 1.4 -----R Total: 1.8 -----L Total: 2.0 Bone mineral density has: Decreased -8.0% since study of: 05/17/2020 FRAX%s: The graph provided illustrates a 10.9% chance for a major osteoporotic fx and a 0.3% chance f or the hips probability for fx in 10 years time. IMPRESSION: Normal (Values between +1 and -1 indicate normal bone mass). Consider repeating this study in 5 year s or sooner if there is some new clinical indication. NOTE: T-SCORE=SD OF THE YOUNG ADULT MEAN.
--- NOTE | 2023-09-15 14:29 | MM ---
Reason for Exam: Screening (asymptomatic). Last mammogram was performed 1 year(s) and 1 month(s) ago. Patient History: Menarche at age 14. Patient has no children. Left ovary removed at age 40. Right ovary removed at age 40. Hysterectomy at age 40. Postmenopausal. Other cancer. Estrogen, starting at age 40 for 8 years. 10/21/2018, Benign Core Biopsy on the right side. 09/08/2018, High risk Core Biopsy on the right side. Maternal grandmother had breast cancer. Maternal aunt had breast cancer, age 60. Maternal aunt had breast cancer, age 60. Maternal aunt had breast cancer. Maternal aunt had breast cancer. Risk Values: Alva 5 year model risk: 2.5%. NCI Lifetime model risk: 11.6%. Prior Study Comparison: 03/05/2020 Bilateral Screening Mammogram, [facility]. 06/13/2021 Bilateral Screening Mammogram, [facility]. 08/12/2022 Bilateral MG 3D screening mammo w/cad, [facility]. Tissue Density: There are scattered areas of fibroglandular density. Findings: Analyzed By CAD. Left breast: There is no suspicious group of microcalcifications or new suspicious mass. Right breast: Nothing to correlate with palpable abnormality in the right breast. Overall Assessment: Incomplete: need additional imaging evaluation, BI-RAD 0 Management: Diagnostic Breast Ultrasound of the right breast. [facility] will attempt to contact patient to return for supplemental views and ultrasound if indicated. Patient should continue monthly self-breast exams. A clinical breast exam by your physician is recommended on an annual basis. This exam should not preclude additional follow-up of suspicious palpable abnormalities. Note on Alva scores and lifetime risk: 1. A Alva score greater than 3% is considered moderate risk. If this is the case, consider specialist referral to assess eligibility for a risk reducing agent. 2. If overall lifetime risk for the development of breast cancer is 20% or higher, the patient may qualify for future screening with alternating mammogram and breast MRI. Electronically signed and approved by: Jamil Cai DO
== END | disposition home or self-care (01) ==
LOC: RADMAMWWP 12:25
PROVIDERS: ATTEND Family Medicine
DX: Z12.31 Encounter for screening mammogram for malignant neoplasm of breast (principal); Z13.820 Encounter for screening for osteoporosis; Z78.0 Asymptomatic menopausal state; Z80.3 Family history of malignant neoplasm of breast
CPT/HCPCS: 77063; 77067; 77080

== ENCOUNTER → 2023-09-20 | Outpatient (CLI) | payer MEDICARE | END | disposition home or self-care (01) | LOC: RADUSWWP 10:45 | PROVIDERS: ATTEND Family Medicine | DX: Z53.9 Procedure and treatment not carried out, unspecified reason (principal) ==